=== PATIENT | male | born 1990 | race Caucasian/White ===

== ENCOUNTER → 2018-05-17 14:03 | Emergency (ER) | payer BC, MEDICAID, MEDICARE ==
[~2018-05-17 14:03] MED LIST: Mouth Piece, Nicotine* 1 EACH CARTRIDGE INH PRN; Nicotine Inhaler* 10 MG AMP INH PRN
[2018-05-17 15:01] LABS: ABS Basophils 0 10^3/ul (0-0.2); ABS Eosinophils 0.1 10^3/ul (0-0.6); ABS Lymphocytes 2.5 10^3/ul (1.0-4.8); ABS Monocytes 0.5 10^3/ul (0-0.8); ABS Neutrophils 6.4 10^3/ul (1.5-7.7); ABS Nucleated RBC 0 10^3/ul; Eosinophil % 0.7 % (0-6); Hematocrit 41 % (42-52); Hemoglobin 13.9 g/dl (14.0-18.0); Lymphocyte % 26.8 % (25-47); Mean Corpuscular HGB Conc 34 g/dl (31-36); Mean Corpuscular Hemoglobin 31 pg (27-31); Mean Corpuscular Volume 91 fL (80-94); Mean Platelet Volume 9.6 um3 (7.4-10.4); Nucleated Red Blood Cells % 0; Platelet Count 222 10^3/ul (150-450); Red Cell Distribution Width 14 % (10.5-15); White Blood Count 9.5 10^3/ul (3.5-10.8)
[2018-05-17 15:05] LABS: Urine Appearance Cloudy; Urine Blood Negative (Negative); Urine Color Amber; Urine Ketones Trace (Negative); Urine Protein 1+(30 mg/dL) (Negative); Urine Red Blood Cell Absent (Absent); Urine Specific Gravity 1.026 (1.010-1.030); Urine Urobilinogen Negative (Negative); Urine White Blood Cell Absent (Absent)
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
[2018-05-17 15:19] LABS: EGFR Non-African American 91.7 (>60)
[2018-05-17 19:45] VITALS: BP 145/73
== END | disposition home or self-care (01) ==
LOC: ED 14:03
DX: F39 Unspecified mood [affective] disorder (principal)
CPT/HCPCS: 36415; 80053; 80164; 80307; 80320; 80329; 81003; 81015; 84443; 85025; 99284; G0480

== ENCOUNTER 2019-06-02 12:32 | Inpatient (IN) | payer MEDICARE, MEDICAID ==
[2019-06-02 13:07] LABS: ABS Eosinophils 0.2 10^3/ul (0-0.6); ABS Lymphocytes 2.5 10^3/ul (1.0-4.8); ABS Monocytes 0.7 10^3/ul (0-0.8); ABS Neutrophils 4.3 10^3/ul (1.5-7.7); Eosinophil % 2.1 %; Hematocrit 43 % (42-52); Hemoglobin 15.4 g/dL (14.0-18.0); Lymphocyte % 32.1 %; Mean Corpuscular HGB Conc 36 g/dL (31-36); Mean Corpuscular Hemoglobin 33 pg (27-31); Mean Corpuscular Volume 91 fL (80-94); Mean Platelet Volume 8.8 fL (7.4-10.4); Nucleated Red Blood Cells % 0.1; Platelet Count 203 10^3/uL (150-450); Red Blood Count 4.74 10^6 /uL (4.18-5.48); Red Cell Distribution Width 13 % (10-15); White Blood Count 7.7 10^3/uL (3.5-10.8)
[2019-06-02 13:22] LABS: ALT 14 U/L (7-52); AST 15 U/L (13-39); Albumin 4.7 g/dL (3.2-5.2); Albumin/Globulin Ratio 1.6 (1-3); Alkaline Phosphatase 59 U/L (34-104); Anion Gap 9 mmol/L (2-11); BUN/Creatinine Ratio 18.8 (8-20); Blood Urea Nitrogen 15 mg/dL (6-24); CO2 Carbon Dioxide 24 mmol/L (22-32); Calcium 10.2 mg/dL (8.6-10.3); Chloride 105 mmol/L (101-111); EGFR African American 139.3 (>60); EGFR Non-African American 115.1 (>60); Globulin 2.9 g/dL (2-4); Glucose 93 mg/dL (70-100); Potassium 3.8 mmol/L (3.5-5.0); Sodium 138 mmol/L (135-145); Total Protein 7.6 g/dL (6.4-8.9)
[2019-06-02 13:43] LABS: Acetaminophen < 15 mcg/mL; Alcohol < 10 mg/dL (<10); Salicylate < 2.50 mg/dL (<30)
[2019-06-02 13:57] LABS: TSH (Thyroid Stimulating Horm) 2.86 mcIU/mL (0.34-5.60)
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
[2019-06-02] MEDS ORDERED: Nicotine* 2MG (FRUIT FLAVOR) GUM PO PRN (16:36)
[2019-06-02 18:17] LABS: Urine Benzodiazepine Screen None Detected (None Detect); Urine Opiates Screen None Detected (None Detect)
[2019-06-02 18:21] LABS: Urine Appearance Clear; Urine Color Yellow; Urine Specific Gravity 1.015 (1.010-1.030); Urine Urobilinogen Negative (Negative)
[2019-06-02 18:22] LABS: Urine Bilirubin Negative (Negative); Urine Blood Negative (Negative); Urine Glucose Negative (Negative); Urine Ketones 1+ (Negative); Urine Nitrite Negative (Negative); Urine Protein 1+(30 mg/dL) (Negative)
[2019-06-02 18:26] LABS: Urine Bacteria Absent (Absent); Urine Red Blood Cell Absent (Absent); Urine White Blood Cell Absent (Absent)
[2019-06-02] MEDS: Divalproex ER TAB(*) 500 MG PO SCH (20:50)
[2019-06-02] MEDS: Paliperidone ER TAB* 9 MG TAB.ER PO SCH (20:50)
[2019-06-02] MEDS: Trihexyphenidyl TAB* 2 MG PO SCH (20:51)
[2019-06-03] MEDS: Trihexyphenidyl TAB* 2 MG PO SCH ×2 (08:15→21:14)
[2019-06-03] MEDS: Vitamin THERAPEUTIC TAB PO SCH (08:16)
[2019-06-03] MEDS: Divalproex ER TAB(*) 500 MG PO SCH ×2 (08:16→21:14)
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
[2019-06-03] MEDS: Paliperidone ER TAB* 9 MG TAB.ER PO SCH (21:14)
[2019-06-04 08:36] LABS: HDL Cholesterol 36.8 mg/dL
[2019-06-04 09:55] LABS: HIV 4th Generation Nonreactive (Nonreactive)
[2019-06-04] MEDS: Divalproex ER TAB(*) 500 MG PO SCH ×2 (10:16→21:48)
[2019-06-04] MEDS: Trihexyphenidyl TAB* 2 MG PO SCH ×2 (10:16→21:48)
[2019-06-04] MEDS: Vitamin THERAPEUTIC TAB PO SCH (10:16)
[2019-06-04] MEDS: Nicotine PATCH 21 MG/24 HR* PATCH TRANSDERM SCH (11:33)
--- NOTE | 2019-06-04 16:36 | PN ---
Subjective - Subjective Date of Service: 06/04/19 Service Type: 51516 Hosp care 25 min moderate complexity Subjective: Patient lying down upon approach, pleasant to engage with. He joined film writer and SW to discuss treatment planning. He reports liking working at the [employer] [facility] [employer] and is eager to return to work. 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 He states he is not exercising as much and stopped going to the gym when he started smoking cigarettes. He reports drinking alcohol "a lot" as it gives him a buzz and relaxation. He also refers to giving him a break from mental anguish. He does not recall being aggressive at home or during recent hospitalization in [place] and seems genuinely surprised about collateral information. Patient states he remembers being depressed and "like my parents were gonna send me to [facility]." I inquire about Morgan and he states that he doesn't like the injections due to it "sitting in his muscle" and he worries about protein synthesis. [film writer recalls this delusion being consistent when treating him outpatient setting in approx 2014.] During conversation, patient tends to other stimuli and often asks that questions be repeated. Lottery Sales Clerk spoke with patient's psychiatrist, Dr Butler. Patient has had consistently poor adherence to treatment and insight into illness. He states that he received Invega injection last in November then refused to continue. Objective - General Observations Appearance: Unkempt Appears Stated Age: Yes Stature: Overweight Posture: Tense Eye Contact: Avoidant Behavior/Activity: Slowed - Interaction Observations Attitude Towards Examiner: Cooperative Stated Mood: Euthymic Affect: Incongruent Speech Pattern/Tone: Clear, Appropriate, Quiet Volume Thought Process: Disorganized Perception: WNL Thought Content: Grandiose Thought Process: Lethality: Paranoid Ideation Hallucination Type: Denies Delusion Type: Grandeur - Cognitive Function Orientation: A&O x 4 Level of Consciousness: Alert Cognition: Impaired Attention/Concentration Estimated Intelligence: Normal Insight: Difficulty Acknowledging Presence of Psyciatric Problems Judgment Within Normal Limits: No Ability to Make Reasonable Decisions: Serverely Impaired - Medication Compliance Cooperative with Inpatient Medication Regimen: Yes - Group Participation Participates in Group Activities: Partial Assessment - Assessment Merits Inpatient Hospitalization: For Immediate Safety, For Stabilization Inpatient DSM-V Dx: F25.0 Clinical Impression: 28yo wm with known history of schizoaffective d/o and poor compliance to outpatient treatment who was brought to the ED by parents due to disorganized and aggressive behavior at home. He merits hospitalization for immediate safety and stabilization. Plan - Plan Treatment Plan: Name: KAMALA MCKEON Birthdate: 1990 [id number] continue acute intensive psychiatric treatment. consider [facility] protocol per patient symptoms continue current medications, consider invega sustenna per patient consent Valproic acid trough level of 86.0 on 06/04/19 Continued Medication Management: Start Medication Medications: Current Medications Acetaminophen (Tylenol Tab*) 650 mg PO Q4H PRN PRN Reason: for pain; or Temp >101 F Al Hydrox/Mg Hydrox/Simethicone (Maalox Plus*) 30 ml PO Q4H PRN PRN Reason: INDIGESTION Divalproex Sodium (Depakote Er Tab(*)) 1,000 mg PO BID [facility] Last Admin: 06/04/19 10:16 Dose: 1,000 mg Multivitamins (Theragran Tab*) 1 tab PO DAILY [facility] Last Admin: 06/04/19 10:16 Dose: 1 tab Nicotine (Nicotine Patch 21 Mg/24 Hr*) 1 patch TRANSDERM DAILY [facility] Last Admin: 06/04/19 11:33 Dose: 1 patch Nicotine Polacrilex (Nicotine Gum*) 4 mg PO Q2H PRN PRN Reason: CRAVING Paliperidone (Invega Er Tab*) 9 mg PO BEDTIME [facility] Last Admin: 06/03/19 21:14 Dose: 9 mg Pharmacy Profile Note (Nicotine Patch Removal Note*) 1 note PATCH OFF 2099 [facility] Trihexyphenidyl HCl (Artane*) 2 mg PO BID [facility] Last Admin: 06/04/19 10:16 Dose: 2 mg - Discharge Plan Discharge Plan: Inpatient Hospitalization
[2019-06-04] MEDS: Nicotine* 4MG (FRUIT FLAVOR) GUM PO PRN (19:28)
[2019-06-04] MEDS: Nicotine Patch Removal NOTE PATCH OFF SCH (21:48)
[2019-06-04] MEDS: Paliperidone ER TAB* 9 MG TAB.ER PO SCH (21:48)
[2019-06-05] MEDS ORDERED: Paliperidone SUSTENNA* 156 MG/1 ML IM ONE (09:30)
[2019-06-05] MEDS ORDERED: LORazepam TAB(*) 1 MG PO SCH (11:00)
[2019-06-05] MEDS: Vitamin THERAPEUTIC TAB PO SCH (11:17)
[2019-06-05] MEDS: Trihexyphenidyl TAB* 2 MG PO SCH ×2 (11:20→21:29)
[2019-06-05] MEDS: Nicotine PATCH 21 MG/24 HR* PATCH TRANSDERM SCH (11:21)
[2019-06-05] MEDS: Divalproex ER TAB(*) 500 MG PO SCH ×2 (11:37→21:27)
--- NOTE | 2019-06-05 14:28 | PN ---
Subjective - Subjective Date of Service: 06/05/19 Service Type: 73942 Hosp care 25 min moderate complexity Subjective: Patient reports frustration that staff members are staring him down, talking about him and judging him and refers to them with derogatory comments. Magnetic Observer asked patient for clarification and he responded with intense stare and yelling "You think I'm fucking crazy!?!" Magnetic Observer changed topic and patient later said that his father often asks him for evidence regarding thought content. Patient notified of depakote level of 86.0 and recommendation to increase HS dose. He asks about invega sustenna and side effects. He states he feels it coagulate in his muscle, that it moves his soul and makes him sterile. Magnetic Observer discussed risks/benefits and patient states "I can make it move from my muscle to my brain then." Magnetic Observer notified charge nurse of above and that patient may be less reactive to female staff. Objective - General Observations Appearance: Disheveled, Unkempt Stature: Overweight Posture: Tense Eye Contact: Intense, Intermittent Behavior/Activity: Peculiar - Interaction Observations Attitude Towards Examiner: Cooperative, Hostile, Mistrustful Stated Mood: Irritable Affect: Restricted Speech Pattern/Tone: Clear, Appropriate Thought Process: Disorganized Perception: WNL Thought Content: Paranoid, Grandiose Thought Process: Lethality: Paranoid Ideation Hallucination Type: Denies Delusion Type: Persecution, Grandeur - Cognitive Function Orientation: A&O x 4 Level of Consciousness: Alert Cognition: Impaired Attention/Concentration Estimated Intelligence: Normal Insight: Difficulty Acknowledging Presence of Psyciatric Problems Judgment Within Normal Limits: No Ability to Make Reasonable Decisions: Serverely Impaired - Medication Compliance Cooperative with Inpatient Medication Regimen: Yes - Group Participation Participates in Group Activities: Partial Assessment - Assessment Merits Inpatient Hospitalization: For Immediate Safety, For Stabilization Inpatient DSM-V Dx: F25.0 Clinical Impression: 28yo wm with known history of schizoaffective d/o and poor compliance to outpatient treatment who was brought to the ED by parents due to disorganized and aggressive behavior at home. He merits hospitalization for immediate safety and stabilization. Plan - Plan Treatment Plan: Name: KAMALA MCKEON Birthdate: 1990 [id number] continue acute intensive psychiatric treatment. consider [facility] protocol per patient symptoms Valproic acid trough level of 86.0 on 06/04/19; increase dose to 1000mg in am and 1500mg qhs. give invega sustenna 156mg IM when available from pharmacy. continue other medications as ordered. Continued Medication Management: Start Medication Medications: Current Medications Acetaminophen (Tylenol Tab*) 650 mg PO Q4H PRN PRN Reason: for pain; or Temp >101 F Al Hydrox/Mg Hydrox/Simethicone (Maalox Plus*) 30 ml PO Q4H PRN PRN Reason: INDIGESTION Divalproex Sodium (Depakote Er Tab(*)) 1,500 mg PO BEDTIME [facility] Divalproex Sodium (Depakote Er Tab(*)) 1,000 mg PO DAILY [facility] Last Admin: 06/05/19 11:37 Dose: 1,000 mg Folic Acid (Folvite Tab*) 1 mg PO DAILY [facility] Lorazepam (Ativan Tab(*)) 0 - 6 mg PO .PER [facility] PROTOCOL [facility]; Protocol Multivitamins (Theragran Tab*) 1 tab PO DAILY [facility] Last Admin: 06/05/19 11:17 Dose: 1 tab Nicotine (Nicotine Patch 21 Mg/24 Hr*) 1 patch TRANSDERM DAILY [facility] Last Admin: 06/05/19 11:21 Dose: Not Given Nicotine Polacrilex (Nicotine Gum*) 4 mg PO Q2H PRN PRN Reason: CRAVING Last Admin: 06/04/19 19:28 Dose: 4 mg Paliperidone (Invega Er Tab*) 9 mg PO BEDTIME [facility] Last Admin: 06/04/19 21:48 Dose: 9 mg Pharmacy Profile Note (Nicotine Patch Removal Note*) 1 note PATCH OFF 2100 [facility] Last Admin: 06/04/19 21:48 Dose: 1 note Thiamine HCl (Vitamin B-1 Tab*) 100 mg PO DAILY [facility] Trihexyphenidyl HCl (Artane*) 2 mg PO BID [facility] Last Admin: 06/05/19 11:20 Dose: 2 mg - Discharge Plan Discharge Plan: Inpatient Hospitalization
[2019-06-05] MEDS: Nicotine* 4MG (FRUIT FLAVOR) GUM PO PRN (18:26)
[2019-06-05] MEDS: Paliperidone ER TAB* 9 MG TAB.ER PO SCH (21:28)
[2019-06-05] MEDS: Nicotine Patch Removal NOTE PATCH OFF SCH (21:29)
[2019-06-06] MEDS: Folic Acid TAB* 1 MG PO SCH (09:48)
[2019-06-06] MEDS: Thiamine TAB* 100 MG TAB PO SCH (09:49)
[2019-06-06] MEDS: Vitamin THERAPEUTIC TAB PO SCH (09:49)
[2019-06-06] MEDS: Divalproex ER TAB(*) 500 MG PO SCH ×2 (09:49→21:14)
[2019-06-06] MEDS: Trihexyphenidyl TAB* 2 MG PO SCH ×2 (09:50→21:13)
[2019-06-06] MEDS: Nicotine PATCH 21 MG/24 HR* PATCH TRANSDERM SCH (11:41)
--- NOTE | 2019-06-06 16:18 | PN ---
Subjective - Subjective Date of Service: 06/06/19 Service Type: 42241 Hosp care 35 min high complexity Subjective: Patient is primarily seclusive to his room and slept most of the day. Phone call with mother, Linda Ray and unit SW Dionne Kimble LMSW: Linda reports patient has been consistently taking medications, as she dispenses them directly to him. She states that he was drinking much alcohol in the days prior to episode leading to admission. She states that he was last in [facility] psychiatric unit in february. It was during this hospitalization that he received an Invega sustenna injection and afterwards he felt flu-like symptoms for 10 days. She also gives more history in that Kamala was in treatment at the [facility] for a year while being prescribed clozapine. She states that they made an exception for this medication. He has also been in [facility] for almost a year, including the [facility] program. She states that she and her have been housing him but that it is not sustainable due to his needs. She is receptive to having a family meeting and set a time for tomorrow afternoon. Objective - General Observations Appearance: Disheveled Stature: Overweight Posture: Slumped Eye Contact: Avoidant Behavior/Activity: Slowed - Interaction Observations Attitude Towards Examiner: Cooperative Stated Mood: Dysphoric Affect: Blunted Speech Pattern/Tone: Appropriate, Quiet Volume Thought Process: Disorganized Perception: WNL Thought Content: Paranoid, Phobic Thought Process: Lethality: Paranoid Ideation Hallucination Type: Denies Delusion Type: Persecution - Cognitive Function Orientation: A&O x 4 Level of Consciousness: Alert Cognition: Impaired Attention/Concentration Estimated Intelligence: Normal Insight: Difficulty Acknowledging Presence of Psyciatric Problems Judgment Within Normal Limits: No Ability to Make Reasonable Decisions: Serverely Impaired - Medication Compliance Cooperative with Inpatient Medication Regimen: Yes - Group Participation Participates in Group Activities: No Assessment - Assessment Merits Inpatient Hospitalization: For Immediate Safety, For Stabilization Inpatient DSM-V Dx: F25.0 Clinical Impression: 28yo wm with known history of schizoaffective d/o and poor compliance to outpatient treatment who was brought to the ED by parents due to disorganized and aggressive behavior at home. He merits hospitalization for immediate safety and stabilization. Plan - Plan Treatment Plan: Name: KAMALA RAY Birthdate: 1990 [id number] continue acute intensive psychiatric treatment. consider [facility] protocol per patient symptoms Valproic acid trough level of 86.0 on 06/04/19; continue depakote 1000mg in am and 1500mg qhs. may hold invega sustenna 156mg IM until after family meeting. continue other medications as ordered. family meeting on 06/07 at 1600 Continued Medication Management: Consider Medication Medications: Current Medications Acetaminophen (Tylenol Tab*) 650 mg PO Q4H PRN PRN Reason: for pain; or Temp >101 F Al Hydrox/Mg Hydrox/Simethicone (Maalox Plus*) 30 ml PO Q4H PRN PRN Reason: INDIGESTION Divalproex Sodium (Depakote Er Tab(*)) 1,500 mg PO BEDTIME [facility] Last Admin: 06/05/19 21:27 Dose: 1,500 mg Divalproex Sodium (Depakote Er Tab(*)) 1,000 mg PO DAILY [facility] Last Admin: 06/06/19 09:49 Dose: 1,000 mg Folic Acid (Folvite Tab*) 1 mg PO DAILY [facility] Last Admin: 06/06/19 09:48 Dose: 1 mg Lorazepam (Ativan Tab(*)) 0 - 6 mg PO .PER [facility] PROTOCOL FELIX; Protocol Multivitamins (Theragran Tab*) 1 tab PO DAILY [facility] Last Admin: 06/06/19 09:49 Dose: 1 tab Nicotine (Nicotine Patch 21 Mg/24 Hr*) 1 patch TRANSDERM DAILY [facility] Last Admin: 06/06/19 11:41 Dose: Not Given Nicotine Polacrilex (Nicotine Gum*) 4 mg PO Q2H PRN PRN Reason: CRAVING Last Admin: 06/05/19 18:26 Dose: 4 mg Paliperidone (Invega Er Tab*) 9 mg PO BEDTIME [facility] Last Admin: 06/05/19 21:28 Dose: 9 mg Pharmacy Profile Note (Nicotine Patch Removal Note*) 1 note PATCH OFF 2100 [facility] Last Admin: 06/05/19 21:29 Dose: Not Given Thiamine HCl (Vitamin B-1 Tab*) 100 mg PO DAILY [facility] Last Admin: 06/06/19 09:49 Dose: 100 mg Trihexyphenidyl HCl (Artane*) 2 mg PO BID [facility] Last Admin: 06/06/19 09:50 Dose: 2 mg - Discharge Plan Discharge Plan: Inpatient Hospitalization Outpatient Program: [facility]
[2019-06-06] MEDS: Nicotine* 4MG (FRUIT FLAVOR) GUM PO PRN (17:31)
[2019-06-06] MEDS: Paliperidone ER TAB* 9 MG TAB.ER PO SCH (21:13)
[2019-06-06] MEDS: Nicotine Patch Removal NOTE PATCH OFF SCH (21:15)
[2019-06-07] MEDS: Divalproex ER TAB(*) 500 MG PO SCH ×2 (10:58→19:34)
[2019-06-07] MEDS: Thiamine TAB* 100 MG TAB PO SCH (10:59)
[2019-06-07] MEDS: Trihexyphenidyl TAB* 2 MG PO SCH ×2 (10:59→19:41)
[2019-06-07] MEDS: Vitamin THERAPEUTIC TAB PO SCH (10:59)
[2019-06-07] MEDS: Folic Acid TAB* 1 MG PO SCH (10:59)
[2019-06-07] MEDS: Nicotine PATCH 21 MG/24 HR* PATCH TRANSDERM SCH (11:00)
--- NOTE | 2019-06-07 16:03 | PN ---
Subjective - Subjective Date of Service: 06/07/19 Service Type: [id number] Hosp care 35 min high complexity Subjective: Family meeting attended by short story writer, patient's parents Linda and Chan, and Dionne Kimble LMSW with Kamala joining partway through. Linda and Chan were updated regarding his presentation and treatment planning. They had questions regarding schizophrenia and schizoaffective disorder. They identified with Kamala showing episodic mood changes. Kamala joined and was alternately jovial, agitated and tearful but congruent to topic of conversation. He demonstrates impaired insight and does not believe he has mental illness. He is defensive in regards to delusional thought content and discussion regarding alcohol abuse. Please see SW note for further detail. Objective - General Observations Appearance: Disheveled Appears Stated Age: Yes Stature: Overweight Posture: Tense Eye Contact: Intense Behavior/Activity: Peculiar, Agitated - Interaction Observations Attitude Towards Examiner: Cooperative, Defensive, Mistrustful Stated Mood: Dysphoric, Irritable Affect: Labile Speech Pattern/Tone: Quiet Volume, Loud Volume Thought Process: Disorganized, Circumstantial, Impoverished Perception: WNL Thought Content: Paranoid, Self-Deprecatory, Grandiose Thought Process: Lethality: Paranoid Ideation Hallucination Type: Denies Delusion Type: Persecution, Grandeur - Cognitive Function Orientation: A&O x 4 Level of Consciousness: Alert Cognition: Impaired Attention/Concentration, Impaired Ability to Abstract Estimated Intelligence: Normal Insight: Difficulty Acknowledging Presence of Psyciatric Problems Judgment Within Normal Limits: No Ability to Make Reasonable Decisions: Serverely Impaired Assessment - Assessment Merits Inpatient Hospitalization: For Immediate Safety, For Stabilization Inpatient DSM-V Dx: F25.0 Clinical Impression: 28yo wm with known history of schizoaffective d/o and poor compliance to outpatient treatment who was brought to the ED by parents due to disorganized and aggressive behavior at home. He is acutely psychotic without insight. He merits hospitalization for immediate safety and stabilization. Plan - Plan Treatment Plan: Name: KAMALA MCKEON Birthdate: 1990 [id number] continue acute intensive psychiatric treatment. [facility] protocol. Valproic acid trough level of 86.0 on 06/04/19; continue depakote 1000mg in am and 1500mg qhs. may give invega sustenna 156mg IM. continue other medications as ordered. continue to explore realistic discharge planning Continued Medication Management: Start Medication Medications: Current Medications Acetaminophen (Tylenol Tab*) 650 mg PO Q4H PRN PRN Reason: for pain; or Temp >101 F Al Hydrox/Mg Hydrox/Simethicone (Maalox Plus*) 30 ml PO Q4H PRN PRN Reason: INDIGESTION Divalproex Sodium (Depakote Er Tab(*)) 1,500 mg PO BEDTIME [facility] Last Admin: 06/06/19 21:14 Dose: 1,500 mg Divalproex Sodium (Depakote Er Tab(*)) 1,000 mg PO DAILY [facility] Last Admin: 06/07/19 10:58 Dose: 1,000 mg Folic Acid (Folvite Tab*) 1 mg PO DAILY [facility] Last Admin: 06/07/19 10:59 Dose: 1 mg Lorazepam (Ativan Tab(*)) 0 - 6 mg PO .[address] [facility] PROTOCOL [facility]; Protocol Multivitamins (Theragran Tab*) 1 tab PO DAILY [facility] Last Admin: 06/07/19 10:59 Dose: 1 tab Nicotine (Nicotine Patch 21 Mg/24 Hr*) 1 patch TRANSDERM DAILY [facility] Last Admin: 06/07/19 11:00 Dose: 1 patch Nicotine Polacrilex (Nicotine Gum*) 4 mg PO Q2H PRN PRN Reason: CRAVING Last Admin: 06/06/19 17:31 Dose: 4 mg Paliperidone (Invega Er Tab*) 9 mg PO BEDTIME [facility] Last Admin: 06/06/19 21:13 Dose: 9 mg Pharmacy Profile Note (Nicotine Patch Removal Note*) 1 note PATCH OFF 2099 [facility] Last Admin: 06/06/19 21:15 Dose: Not Given Thiamine HCl (Vitamin B-1 Tab*) 100 mg PO DAILY [facility] Last Admin: 06/07/19 10:59 Dose: 100 mg Trihexyphenidyl HCl (Artane*) 2 mg PO BID [facility] Last Admin: 06/07/19 10:59 Dose: 2 mg - Discharge Plan Discharge Plan: Inpatient Hospitalization
[2019-06-07] MEDS: Nicotine* 4MG (FRUIT FLAVOR) GUM PO PRN (18:03)
[2019-06-07] MEDS: Paliperidone ER TAB* 9 MG TAB.ER PO SCH (19:34)
[2019-06-07] MEDS ORDERED: LORazepam TAB(*) 1 MG PO ONE (20:00)
[2019-06-07] MEDS ORDERED: Haloperidol TAB* 5 MG PO ONE (20:00)
[2019-06-07] MEDS: Nicotine Patch Removal NOTE PATCH OFF SCH (21:55)
[2019-06-08] MEDS ORDERED: Influenza VAC *QUAD* 2019-20* 0.5 ML SYRINGE IM ONE (09:00)
[2019-06-08] MEDS: Trihexyphenidyl TAB* 2 MG PO SCH ×2 (09:40→21:04)
[2019-06-08] MEDS: Vitamin THERAPEUTIC TAB PO SCH (09:40)
[2019-06-08] MEDS: Thiamine TAB* 100 MG TAB PO SCH (09:40)
[2019-06-08] MEDS: Folic Acid TAB* 1 MG PO SCH (09:40)
[2019-06-08] MEDS: Divalproex ER TAB(*) 500 MG PO SCH ×2 (09:41→21:02)
[2019-06-08] MEDS: Nicotine PATCH 21 MG/24 HR* PATCH TRANSDERM SCH (09:41)
[2019-06-08] MEDS: clonazePAM TAB(*) 1 MG PO SCH ×2 (12:10→21:02)
--- NOTE | 2019-06-08 13:05 | PN ---
Subjective - Subjective Date of Service: 06/08/19 Service Type: 34852 Hosp care 25 min moderate complexity Subjective: Patient was agitated last evening-- punching doors and stating that staff were "talking shit" about him. Today, patient accepted invega injection. He reports feeling tired today. Objective - General Observations Appearance: Disheveled, Unkempt Stature: Overweight Posture: Other (See Comment) - lying down Eye Contact: Average Behavior/Activity: Slowed - Interaction Observations Attitude Towards Examiner: Cooperative Stated Mood: Dysphoric Affect: Blunted Speech Pattern/Tone: Quiet Volume Thought Process: Disorganized, Impoverished Perception: WNL Thought Content: Paranoid, Grandiose Hallucination Type: Auditory Delusion Type: Persecution, Grandeur - Cognitive Function Orientation: A&O x 4 Level of Consciousness: Alert Cognition: Impaired Attention/Concentration, Impaired Ability to Abstract Estimated Intelligence: Normal Insight: Difficulty Acknowledging Presence of Psyciatric Problems Judgment Within Normal Limits: No Ability to Make Reasonable Decisions: Serverely Impaired - Medication Compliance Cooperative with Inpatient Medication Regimen: Yes - Group Participation Participates in Group Activities: No Assessment - Assessment Merits Inpatient Hospitalization: For Immediate Safety, For Stabilization Inpatient DSM-V Dx: F25.0 Clinical Impression: 28yo wm with known history of schizoaffective d/o and poor compliance to outpatient treatment who was brought to the ED by parents due to disorganized and aggressive behavior at home. He is acutely psychotic without insight. He merits hospitalization for immediate safety and stabilization. Plan - Plan Treatment Plan: Name: KAMALA MCKEON Birthdate: 1990 [id number] continue acute intensive psychiatric treatment. convert to 2PC legal status. may decrease to q30min and allow staff pass per RN discretion. [place] protocol. Valproic acid trough level of 86.0 on 06/04/19; continue depakote 1000mg in am and 1500mg qhs. given invega sustenna 156mg IM in R deltoid on 06/08/19; continue oral coverage. add clonazepam 1mg BID and haloperidol prn agitation. continue other medications as ordered. continue to explore realistic discharge planning. may need to consider state hospitalization. Continued Medication Management: Start Medication Medications: Current Medications Acetaminophen (Tylenol Tab*) 650 mg PO Q4H PRN PRN Reason: for pain; or Temp >101 F Al Hydrox/Mg Hydrox/Simethicone (Maalox Plus*) 30 ml PO Q4H PRN PRN Reason: INDIGESTION Clonazepam (Klonopin Tab(*)) 1 mg PO BID [facility] Last Admin: 06/08/19 12:10 Dose: 1 mg Divalproex Sodium (Depakote Er Tab(*)) 1,500 mg PO BEDTIME [facility] Last Admin: 06/07/19 19:34 Dose: 1,500 mg Divalproex Sodium (Depakote Er Tab(*)) 1,000 mg PO DAILY [facility] Last Admin: 06/08/19 09:41 Dose: 1,000 mg Folic Acid (Folvite Tab*) 1 mg PO DAILY [facility] Last Admin: 06/08/19 09:40 Dose: 1 mg Haloperidol (Haldol Tab*) 5 mg PO Q6H PRN PRN Reason: AGITATION Multivitamins (Theragran Tab*) 1 tab PO DAILY [facility] Last Admin: 06/08/19 09:40 Dose: 1 tab Nicotine (Nicotine Patch 21 Mg/24 Hr*) 1 patch TRANSDERM DAILY [facility] Last Admin: 06/08/19 09:41 Dose: Not Given Nicotine Polacrilex (Nicotine Gum*) 4 mg PO Q2H PRN PRN Reason: CRAVING Last Admin: 06/07/19 18:03 Dose: 4 mg Paliperidone (Invega Er Tab*) 9 mg PO BEDTIME [facility] Last Admin: 06/07/19 19:34 Dose: 9 mg Pharmacy Profile Note (Nicotine Patch Removal Note*) 1 note PATCH OFF 2100 [facility] Last Admin: 06/07/19 21:55 Dose: Not Given Thiamine HCl (Vitamin B-1 Tab*) 100 mg PO DAILY [facility] Last Admin: 06/08/19 09:40 Dose: 100 mg Trihexyphenidyl HCl (Artane*) 2 mg PO BID [facility] Last Admin: 06/08/19 09:40 Dose: 2 mg - Discharge Plan Discharge Plan: Consider Longer Term Tx Outpatient Program: [facility]
[2019-06-08] MEDS: Nicotine Patch Removal NOTE PATCH OFF SCH (21:03)
[2019-06-08] MEDS: Paliperidone ER TAB* 9 MG TAB.ER PO SCH (21:03)
[2019-06-08] MEDS: Nicotine* 4MG (FRUIT FLAVOR) GUM PO PRN (21:05)
[2019-06-09] MEDS: Thiamine TAB* 100 MG TAB PO SCH (08:31)
[2019-06-09] MEDS: Vitamin THERAPEUTIC TAB PO SCH (08:31)
[2019-06-09] MEDS: Nicotine PATCH 21 MG/24 HR* PATCH TRANSDERM SCH (08:31)
[2019-06-09] MEDS: Divalproex ER TAB(*) 500 MG PO SCH ×2 (08:31→20:49)
[2019-06-09] MEDS: clonazePAM TAB(*) 1 MG PO SCH ×2 (08:31→20:48)
[2019-06-09] MEDS: Folic Acid TAB* 1 MG PO SCH (08:31)
[2019-06-09] MEDS: Trihexyphenidyl TAB* 2 MG PO SCH ×2 (08:32→20:50)
[2019-06-09] MEDS: Nicotine* 4MG (FRUIT FLAVOR) GUM PO PRN ×2 (15:46→18:52)
[2019-06-09] MEDS: Paliperidone ER TAB* 9 MG TAB.ER PO SCH (20:50)
[2019-06-09] MEDS: Nicotine Patch Removal NOTE PATCH OFF SCH (21:28)
[2019-06-10] MEDS: Haloperidol TAB* 5 MG PO PRN (02:25)
[2019-06-10] MEDS: Thiamine TAB* 100 MG TAB PO SCH (11:45)
[2019-06-10] MEDS: Folic Acid TAB* 1 MG PO SCH (11:45)
[2019-06-10] MEDS: clonazePAM TAB(*) 1 MG PO SCH ×2 (11:45→20:42)
[2019-06-10] MEDS: Vitamin THERAPEUTIC TAB PO SCH (11:45)
[2019-06-10] MEDS: Trihexyphenidyl TAB* 2 MG PO SCH ×2 (11:46→20:45)
[2019-06-10] MEDS: Divalproex ER TAB(*) 500 MG PO SCH ×2 (11:46→20:42)
[2019-06-10] MEDS: Nicotine PATCH 21 MG/24 HR* PATCH TRANSDERM SCH (11:47)
[2019-06-10] MEDS: Nicotine* 4MG (FRUIT FLAVOR) GUM PO PRN (18:39)
[2019-06-10] MEDS: Paliperidone ER TAB* 9 MG TAB.ER PO SCH (20:45)
[2019-06-10] MEDS: Nicotine Patch Removal NOTE PATCH OFF SCH (20:46)
[2019-06-11] MEDS: Folic Acid TAB* 1 MG PO SCH (08:20)
[2019-06-11] MEDS: clonazePAM TAB(*) 1 MG PO SCH ×2 (08:20→20:36)
[2019-06-11] MEDS: Vitamin THERAPEUTIC TAB PO SCH (08:21)
[2019-06-11] MEDS: Thiamine TAB* 100 MG TAB PO SCH (08:21)
[2019-06-11] MEDS: Divalproex ER TAB(*) 500 MG PO SCH ×2 (08:21→20:36)
[2019-06-11] MEDS: Nicotine PATCH 21 MG/24 HR* PATCH TRANSDERM SCH (08:22)
[2019-06-11] MEDS: Trihexyphenidyl TAB* 2 MG PO SCH ×2 (08:22→20:37)
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
[2019-06-11] MEDS: Nicotine* 4MG (FRUIT FLAVOR) GUM PO PRN ×2 (15:18→18:40)
[2019-06-11] MEDS: Paliperidone ER TAB* 9 MG TAB.ER PO SCH (20:37)
[2019-06-11] MEDS: Nicotine Patch Removal NOTE PATCH OFF SCH (20:38)
[2019-06-12] MEDS: Nicotine PATCH 21 MG/24 HR* PATCH TRANSDERM SCH (10:09)
[2019-06-12] MEDS: Thiamine TAB* 100 MG TAB PO SCH (10:11)
[2019-06-12] MEDS: Vitamin THERAPEUTIC TAB PO SCH (10:11)
[2019-06-12] MEDS: Divalproex ER TAB(*) 500 MG PO SCH ×2 (10:12→20:43)
[2019-06-12] MEDS: clonazePAM TAB(*) 1 MG PO SCH ×2 (10:13→20:42)
[2019-06-12] MEDS: Folic Acid TAB* 1 MG PO SCH (10:13)
[2019-06-12] MEDS: Trihexyphenidyl TAB* 2 MG PO SCH ×2 (10:13→20:45)
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
[2019-06-12] MEDS: Acetaminophen TAB* 325 MG PO PRN (15:22)
[2019-06-12] MEDS: Nicotine* 4MG (FRUIT FLAVOR) GUM PO PRN (18:27)
[2019-06-12] MEDS: Paliperidone ER TAB* 9 MG TAB.ER PO SCH (20:44)
[2019-06-12] MEDS: Nicotine Patch Removal NOTE PATCH OFF SCH (20:46)
[2019-06-13] MEDS: Thiamine TAB* 100 MG TAB PO SCH (11:11)
[2019-06-13] MEDS: Vitamin THERAPEUTIC TAB PO SCH (11:11)
[2019-06-13] MEDS: clonazePAM TAB(*) 1 MG PO SCH ×2 (11:11→20:17)
[2019-06-13] MEDS: Folic Acid TAB* 1 MG PO SCH (11:11)
[2019-06-13] MEDS: Trihexyphenidyl TAB* 2 MG PO SCH ×2 (11:12→20:19)
[2019-06-13] MEDS: Nicotine PATCH 21 MG/24 HR* PATCH TRANSDERM SCH ×2 (11:12→12:29)
[2019-06-13] MEDS: Divalproex ER TAB(*) 500 MG PO SCH ×2 (11:44→20:20)
[2019-06-13] MEDS: Nicotine Patch Removal NOTE PATCH OFF SCH (15:34)
[2019-06-13] MEDS: Nicotine* 4MG (FRUIT FLAVOR) GUM PO PRN (18:58)
[2019-06-13] MEDS: Paliperidone ER TAB* 9 MG TAB.ER PO SCH (20:18)
[2019-06-13] MEDS: Acetaminophen TAB* 325 MG PO PRN (22:19)
[2019-06-14] MEDS: clonazePAM TAB(*) 1 MG PO SCH ×2 (10:06→20:35)
[2019-06-14] MEDS: Folic Acid TAB* 1 MG PO SCH (10:06)
[2019-06-14] MEDS: Vitamin THERAPEUTIC TAB PO SCH (10:06)
[2019-06-14] MEDS: Trihexyphenidyl TAB* 2 MG PO SCH ×2 (10:06→20:37)
[2019-06-14] MEDS: Thiamine TAB* 100 MG TAB PO SCH (10:06)
[2019-06-14] MEDS: Divalproex ER TAB(*) 500 MG PO SCH ×2 (10:07→20:36)
[2019-06-14] MEDS: Nicotine PATCH 21 MG/24 HR* PATCH TRANSDERM SCH (10:08)
[2019-06-14] MEDS: Nicotine* 4MG (FRUIT FLAVOR) GUM PO PRN (15:10)
[2019-06-14] MEDS: Paliperidone ER TAB* 9 MG TAB.ER PO SCH (20:37)
[2019-06-14] MEDS: Nicotine Patch Removal NOTE PATCH OFF SCH (20:38)
[2019-06-15] MEDS: Vitamin THERAPEUTIC TAB PO SCH (10:09)
[2019-06-15] MEDS: clonazePAM TAB(*) 1 MG PO SCH ×2 (10:09→20:36)
[2019-06-15] MEDS: Thiamine TAB* 100 MG TAB PO SCH (10:09)
[2019-06-15] MEDS: Trihexyphenidyl TAB* 2 MG PO SCH ×2 (10:09→20:36)
[2019-06-15] MEDS: Folic Acid TAB* 1 MG PO SCH (10:09)
[2019-06-15] MEDS: Nicotine PATCH 21 MG/24 HR* PATCH TRANSDERM SCH (10:10)
[2019-06-15] MEDS: Divalproex ER TAB(*) 500 MG PO SCH ×2 (11:12→20:36)
[2019-06-15] MEDS: Nicotine* 4MG (FRUIT FLAVOR) GUM PO PRN ×3 (12:42→20:14)
--- NOTE | 2019-06-15 14:09 | PN ---
Subjective - Subjective Date of Service: 06/15/19 Service Type: [id number] Hosp care 15 min low complexity Subjective: Patient reports he is feeling agitated at times. He is jovial and redirectable but endorses bizarre paranoid delusions. He continues to exhibit poor insight into mental illness. He states he is looking forward to the day he can use his mind to overpower medications. Client Care Consultant left with patient's mother with update. Objective - General Observations Appearance: Unkempt Stature: Overweight Posture: WNL Eye Contact: Intense Behavior/Activity: Slowed - Interaction Observations Attitude Towards Examiner: Cooperative Stated Mood: Anxious Affect: Full Speech Pattern/Tone: Clear, Appropriate, Normal Volume Thought Process: Disorganized, Loose Associations, Over Inclusive Perception: WNL Thought Content: Paranoid, Grandiose Thought Process: Lethality: Paranoid Ideation Hallucination Type: Denies Delusion Type: Persecution, Grandeur - Cognitive Function Orientation: A&O x 4 Level of Consciousness: Alert Cognition: Impaired Attention/Concentration Estimated Intelligence: Normal Insight: Difficulty Acknowledging Presence of Psyciatric Problems Judgment Within Normal Limits: No Ability to Make Reasonable Decisions: Serverely Impaired - Medication Compliance Cooperative with Inpatient Medication Regimen: Yes - Group Participation Participates in Group Activities: Partial Assessment - Assessment Merits Inpatient Hospitalization: For Immediate Safety, For Stabilization Inpatient DSM-V Dx: F25.0 Clinical Impression: 28yo wm with known history of schizoaffective d/o and poor compliance to outpatient treatment who was brought to the ED by parents due to disorganized and aggressive behavior at home. He is acutely psychotic without insight. He merits hospitalization for immediate safety and stabilization. Plan - Plan Treatment Plan: Name: KAMALA MCKEON Birthdate: 1990 [id number] continue acute intensive psychiatric treatment. convert to [facility]PC legal status. may decrease to q30min and allow staff pass per RN discretion. may have additional off unit pass per staffing. Valproic acid trough level of 50.0 on 06/13/19; continue depakote 1000mg in am and 1500mg qhs. given invega sustenna 156mg IM in R deltoid on 06/08/19; continue oral coverage. continue clonazepam 1mg BID and haloperidol prn agitation. continue other medications as ordered. continue to explore realistic discharge planning. may need to consider state hospitalization. Medications: Current Medications Acetaminophen (Tylenol Tab*) 650 mg PO Q4H PRN PRN Reason: for pain; or Temp >101 F Last Admin: 06/13/19 22:19 Dose: 650 mg Al Hydrox/Mg Hydrox/Simethicone (Maalox Plus*) 30 ml PO Q4H PRN PRN Reason: INDIGESTION Clonazepam (Klonopin Tab(*)) 1 mg PO BID [facility] Last Admin: 06/15/19 10:09 Dose: 1 mg Divalproex Sodium (Depakote Er Tab(*)) 1,500 mg PO BEDTIME [facility] Last Admin: 06/14/19 20:36 Dose: 1,500 mg Divalproex Sodium (Depakote Er Tab(*)) 1,000 mg PO DAILY [facility] Last Admin: 06/15/19 11:12 Dose: 1,000 mg Folic Acid (Folvite Tab*) 1 mg PO DAILY [facility] Last Admin: 06/15/19 10:09 Dose: 1 mg Haloperidol (Haldol Tab*) 5 mg PO Q6H PRN PRN Reason: AGITATION Last Admin: 06/10/19 02:25 Dose: 5 mg Multivitamins (Theragran Tab*) 1 tab PO DAILY [facility] Last Admin: 06/15/19 10:09 Dose: 1 tab Nicotine (Nicotine Patch 21 Mg/24 Hr*) 1 patch TRANSDERM DAILY [facility] Last Admin: 06/15/19 10:10 Dose: Not Given Nicotine Polacrilex (Nicotine Gum*) 4 mg PO Q2H PRN PRN Reason: CRAVING Last Admin: 06/15/19 12:42 Dose: 4 mg Paliperidone (Invega Er Tab*) 9 mg PO BEDTIME [facility] Last Admin: 06/14/19 20:37 Dose: 9 mg Pharmacy Profile Note (Nicotine Patch Removal Note*) 1 note PATCH OFF 2100 [facility] Last Admin: 06/14/19 20:38 Dose: Not Given Thiamine HCl (Vitamin B-1 Tab*) 100 mg PO DAILY [facility] Last Admin: 06/15/19 10:09 Dose: 100 mg Trihexyphenidyl HCl (Artane*) 2 mg PO BID [facility] Last Admin: 06/15/19 10:09 Dose: 2 mg - Discharge Plan Discharge Plan: Inpatient Hospitalization
[2019-06-15] MEDS: Haloperidol TAB* 5 MG PO PRN (17:27)
[2019-06-15] MEDS: Nicotine Patch Removal NOTE PATCH OFF SCH (20:15)
[2019-06-15] MEDS: Paliperidone ER TAB* 9 MG TAB.ER PO SCH (20:36)
[2019-06-16] MEDS: Trihexyphenidyl TAB* 2 MG PO SCH ×2 (09:18→19:56)
[2019-06-16] MEDS: Thiamine TAB* 100 MG TAB PO SCH (09:18)
[2019-06-16] MEDS: Folic Acid TAB* 1 MG PO SCH (09:18)
[2019-06-16] MEDS: clonazePAM TAB(*) 1 MG PO SCH ×2 (09:18→19:55)
[2019-06-16] MEDS: Nicotine PATCH 21 MG/24 HR* PATCH TRANSDERM SCH (09:19)
[2019-06-16] MEDS: Divalproex ER TAB(*) 500 MG PO SCH ×2 (09:19→19:54)
[2019-06-16] MEDS: Vitamin THERAPEUTIC TAB PO SCH (09:19)
[2019-06-16] MEDS: Nicotine* 4MG (FRUIT FLAVOR) GUM PO PRN ×3 (12:46→19:53)
[2019-06-16] MEDS: Acetaminophen TAB* 325 MG PO PRN (15:17)
[2019-06-16] MEDS: Paliperidone ER TAB* 9 MG TAB.ER PO SCH (19:55)
[2019-06-16] MEDS: Nicotine Patch Removal NOTE PATCH OFF SCH (20:17)
[2019-06-17] MEDS: Vitamin THERAPEUTIC TAB PO SCH (11:47)
[2019-06-17] MEDS: Divalproex ER TAB(*) 500 MG PO SCH ×2 (11:48→19:34)
[2019-06-17] MEDS: Thiamine TAB* 100 MG TAB PO SCH (11:48)
[2019-06-17] MEDS: Folic Acid TAB* 1 MG PO SCH (11:48)
[2019-06-17] MEDS: clonazePAM TAB(*) 1 MG PO SCH ×2 (12:11→19:34)
[2019-06-17] MEDS: Nicotine PATCH 21 MG/24 HR* PATCH TRANSDERM SCH (12:11)
[2019-06-17] MEDS: Trihexyphenidyl TAB* 2 MG PO SCH ×2 (12:12→19:35)
[2019-06-17] MEDS: Nicotine* 4MG (FRUIT FLAVOR) GUM PO PRN ×2 (15:23→18:53)
[2019-06-17] MEDS: Nicotine Patch Removal NOTE PATCH OFF SCH (19:35)
[2019-06-17] MEDS: Paliperidone ER TAB* 9 MG TAB.ER PO SCH (19:35)
[2019-06-18] MEDS: Divalproex ER TAB(*) 500 MG PO SCH ×2 (09:48→20:13)
[2019-06-18] MEDS: Trihexyphenidyl TAB* 2 MG PO SCH ×2 (09:48→20:15)
[2019-06-18] MEDS: Vitamin THERAPEUTIC TAB PO SCH (09:48)
[2019-06-18] MEDS: Thiamine TAB* 100 MG TAB PO SCH (09:48)
[2019-06-18] MEDS: Folic Acid TAB* 1 MG PO SCH (09:48)
[2019-06-18] MEDS: clonazePAM TAB(*) 1 MG PO SCH ×2 (09:48→20:14)
[2019-06-18] MEDS: Nicotine PATCH 21 MG/24 HR* PATCH TRANSDERM SCH (09:50)
--- NOTE | 2019-06-18 16:29 | PN ---
Subjective - Subjective Date of Service: 06/18/19 Service Type: [id number] Hosp care 15 min low complexity Assessment - Assessment Inpatient DSM-V Dx: F25.0 Clinical Impression: 28yo wm with known history of schizoaffective d/o and poor compliance to outpatient treatment who was brought to the ED by parents due to disorganized and aggressive behavior at home. He is acutely psychotic without insight. He merits hospitalization for immediate safety and stabilization. Plan - Plan Treatment Plan: Name: KAMALA MCKEON Birthdate: 1990 [id number] continue acute intensive psychiatric treatment. convert to [facility] legal status. may decrease to q30min and allow staff pass per RN discretion. may have additional off unit pass per staffing. Valproic acid trough level of 50.0 on 06/13/19; continue depakote 1000mg in am and 1500mg qhs. given invega sustenna 156mg IM in R deltoid on 06/08/19; continue oral coverage. continue clonazepam 1mg BID and haloperidol prn agitation. continue other medications as ordered. continue to explore realistic discharge planning. may need to consider state hospitalization. Medications: Current Medications Acetaminophen (Tylenol Tab*) 650 mg PO Q4H PRN PRN Reason: for pain; or Temp >101 F Last Admin: 06/16/19 15:17 Dose: 650 mg Al Hydrox/Mg Hydrox/Simethicone (Maalox Plus*) 30 ml PO Q4H PRN PRN Reason: INDIGESTION Clonazepam (Klonopin Tab(*)) 1 mg PO BID [facility] Last Admin: 06/18/19 09:48 Dose: 1 mg Divalproex Sodium (Depakote Er Tab(*)) 1,500 mg PO BEDTIME [facility] Last Admin: 06/17/19 19:34 Dose: 1,500 mg Divalproex Sodium (Depakote Er Tab(*)) 1,000 mg PO DAILY [facility] Last Admin: 06/18/19 09:48 Dose: 1,000 mg Folic Acid (Folvite Tab*) 1 mg PO DAILY [facility] Last Admin: 06/18/19 09:48 Dose: 1 mg Haloperidol (Haldol Tab*) 5 mg PO Q6H PRN PRN Reason: AGITATION Last Admin: 06/15/19 17:27 Dose: 5 mg Multivitamins (Theragran Tab*) 1 tab PO DAILY [facility] Last Admin: 06/18/19 09:48 Dose: 1 tab Nicotine (Nicotine Patch 21 Mg/24 Hr*) 1 patch TRANSDERM DAILY [facility] Last Admin: 06/18/19 09:50 Dose: Not Given Nicotine Polacrilex (Nicotine Gum*) 4 mg PO Q2H PRN PRN Reason: CRAVING Last Admin: 06/17/19 18:53 Dose: 4 mg Paliperidone (Invega Er Tab*) 9 mg PO BEDTIME [facility] Last Admin: 06/17/19 19:35 Dose: 9 mg Pharmacy Profile Note (Nicotine Patch Removal Note*) 1 note PATCH OFF 2100 [facility] Last Admin: 06/17/19 19:35 Dose: Not Given Thiamine HCl (Vitamin B-1 Tab*) 100 mg PO DAILY [facility] Last Admin: 06/18/19 09:48 Dose: 100 mg Trihexyphenidyl HCl (Artane*) 2 mg PO BID [facility] Last Admin: 06/18/19 09:48 Dose: 2 mg
[2019-06-18] MEDS: Nicotine* 4MG (FRUIT FLAVOR) GUM PO PRN (17:22)
[2019-06-18] MEDS: Paliperidone ER TAB* 9 MG TAB.ER PO SCH (20:15)
[2019-06-18] MEDS: Nicotine Patch Removal NOTE PATCH OFF SCH (20:17)
[2019-06-19] MEDS: Trihexyphenidyl TAB* 2 MG PO SCH (08:10)
[2019-06-19] MEDS: Thiamine TAB* 100 MG TAB PO SCH (08:10)
[2019-06-19] MEDS: Folic Acid TAB* 1 MG PO SCH (08:10)
[2019-06-19] MEDS: Vitamin THERAPEUTIC TAB PO SCH (08:10)
[2019-06-19] MEDS: clonazePAM TAB(*) 1 MG PO SCH ×2 (08:10→20:15)
[2019-06-19] MEDS: Divalproex ER TAB(*) 500 MG PO SCH ×2 (08:10→20:15)
[2019-06-19] MEDS: Nicotine PATCH 21 MG/24 HR* PATCH TRANSDERM SCH (08:11)
[2019-06-19] MEDS: Nicotine* 4MG (FRUIT FLAVOR) GUM PO PRN ×3 (09:26→18:53)
--- NOTE | 2019-06-19 15:49 | PN ---
Subjective - Subjective Date of Service: 06/18/19 Service Type: [id number] Hosp care 25 min moderate complexity Subjective: Patient is easily agitated by peers, especially male peers. He reports that others are talking about him and making fun of the tremor in his left hand. Patient's health care facilities inspector and unit SW are in contact in regards to discharge planning. Manager Internet spoke with patient's mother, Lidna, and given update. She was notified that [facility] may need to be considered. Objective - General Observations Appearance: Disheveled Stature: Overweight Posture: WNL Eye Contact: Average, Intense Behavior/Activity: Impulsive, Agitated - Interaction Observations Attitude Towards Examiner: Cooperative Stated Mood: Irritable Affect: Full Speech Pattern/Tone: Clear, Appropriate, Normal Volume Thought Process: Disorganized, Circumstantial Perception: WNL Thought Content: Paranoid, Grandiose Thought Process: Lethality: Paranoid Ideation Hallucination Type: Auditory Delusion Type: Denies - Cognitive Function Orientation: A&O x 4 Level of Consciousness: Alert Cognition: Impaired Attention/Concentration Estimated Intelligence: Normal Insight: Difficulty Acknowledging Presence of Psyciatric Problems Judgment Within Normal Limits: No Ability to Make Reasonable Decisions: Serverely Impaired - Medication Compliance Cooperative with Inpatient Medication Regimen: Yes - Group Participation Participates in Group Activities: Partial Assessment - Assessment Merits Inpatient Hospitalization: For Immediate Safety, For Stabilization, Pending Safe DC Plan Inpatient DSM-V Dx: F25.0 Clinical Impression: 28yo wm with known history of schizoaffective d/o and poor compliance to outpatient treatment who was brought to the ED by parents due to disorganized and aggressive behavior at home. He is acutely psychotic without insight. He merits hospitalization for immediate safety and stabilization. Plan - Plan Treatment Plan: Name: KAMAAL MCKEON Birthdate: 1990 [id number] continue acute intensive psychiatric treatment. convert to 2PC legal status. may decrease to q30min and allow staff pass per RN discretion. may have additional off unit pass per staffing. Valproic acid trough level of 50.0 on 06/13/19; continue depakote 1000mg in am and 1500mg qhs. given invega sustenna 156mg IM in R deltoid on 06/08/19; continue oral coverage. continue clonazepam 1mg BID and haloperidol prn agitation. DC artane to assess for necessity. continue other medications as ordered. continue to explore realistic discharge planning. may need to consider state hospitalization. Continued Medication Management: Consider Medication Medications: Current Medications Acetaminophen (Tylenol Tab*) 650 mg PO Q4H PRN PRN Reason: for pain; or Temp >101 F Last Admin: 06/16/19 15:17 Dose: 650 mg Al Hydrox/Mg Hydrox/Simethicone (Maalox Plus*) 30 ml PO Q4H PRN PRN Reason: INDIGESTION Clonazepam (Klonopin Tab(*)) 1 mg PO BID [facility] Last Admin: 06/19/19 08:10 Dose: 1 mg Divalproex Sodium (Depakote Er Tab(*)) 1,500 mg PO BEDTIME [facility] Last Admin: 06/18/19 20:13 Dose: 1,500 mg Divalproex Sodium (Depakote Er Tab(*)) 1,000 mg PO DAILY [facility] Last Admin: 06/19/19 08:10 Dose: 1,000 mg Folic Acid (Folvite Tab*) 1 mg PO DAILY [facility] Last Admin: 06/19/19 08:10 Dose: 1 mg Haloperidol (Haldol Tab*) 5 mg PO Q6H PRN PRN Reason: AGITATION Last Admin: 06/15/19 17:27 Dose: 5 mg Multivitamins (Theragran Tab*) 1 tab PO DAILY [facility] Last Admin: 06/19/19 08:10 Dose: 1 tab Nicotine (Nicotine Patch 21 Mg/24 Hr*) 1 patch TRANSDERM DAILY [facility] Last Admin: 06/19/19 08:11 Dose: Not Given Nicotine Polacrilex (Nicotine Gum*) 4 mg PO Q2H PRN PRN Reason: CRAVING Last Admin: 06/19/19 14:07 Dose: 4 mg Paliperidone (Invega Er Tab*) 9 mg PO BEDTIME [facility] Last Admin: 06/18/19 20:15 Dose: 9 mg Pharmacy Profile Note (Nicotine Patch Removal Note*) 1 note PATCH OFF 2100 [facility] Last Admin: 06/18/19 20:17 Dose: Not Given Thiamine HCl (Vitamin B-1 Tab*) 100 mg PO DAILY [facility] Last Admin: 06/19/19 08:10 Dose: 100 mg - Discharge Plan Discharge Plan: Inpatient Hospitalization Outpatient Program: [facility]
[2019-06-19] MEDS: Paliperidone ER TAB* 9 MG TAB.ER PO SCH (20:15)
[2019-06-19] MEDS: Nicotine Patch Removal NOTE PATCH OFF SCH (20:18)
[2019-06-20] MEDS: Folic Acid TAB* 1 MG PO SCH (08:58)
[2019-06-20] MEDS: Divalproex ER TAB(*) 500 MG PO SCH ×2 (08:58→20:18)
[2019-06-20] MEDS: Vitamin THERAPEUTIC TAB PO SCH (08:58)
[2019-06-20] MEDS: Thiamine TAB* 100 MG TAB PO SCH (08:58)
[2019-06-20] MEDS: Nicotine PATCH 21 MG/24 HR* PATCH TRANSDERM SCH (08:59)
[2019-06-20] MEDS: clonazePAM TAB(*) 1 MG PO SCH ×2 (09:00→20:17)
[2019-06-20] MEDS: Al Hydrox/Mg Hydrox/Simet LIQ* 30 ML UDC PO PRN (13:53)
[2019-06-20] MEDS: Nicotine* 4MG (FRUIT FLAVOR) GUM PO PRN (14:38)
--- NOTE | 2019-06-20 16:06 | PN ---
BSU: Group Therapy Note - Service Type Service Type: [id number] Group Psychotherapy - Medication Education Group: Patient was attentive and participatory in group, and remained in good behavioral control. He asked questions that were not particularly on topic.
[2019-06-20] MEDS: Nicotine Patch Removal NOTE PATCH OFF SCH (20:18)
[2019-06-20] MEDS: Paliperidone ER TAB* 9 MG TAB.ER PO SCH (20:18)
[2019-06-21] MEDS: Nicotine PATCH 21 MG/24 HR* PATCH TRANSDERM SCH (08:59)
[2019-06-21] MEDS: Divalproex ER TAB(*) 500 MG PO SCH ×2 (09:00→20:03)
[2019-06-21] MEDS: Thiamine TAB* 100 MG TAB PO SCH (09:01)
[2019-06-21] MEDS: clonazePAM TAB(*) 1 MG PO SCH ×2 (09:01→20:02)
[2019-06-21] MEDS: Folic Acid TAB* 1 MG PO SCH (09:02)
[2019-06-21] MEDS: Vitamin THERAPEUTIC TAB PO SCH (09:02)
[2019-06-21] MEDS: Nicotine* 4MG (FRUIT FLAVOR) GUM PO PRN ×3 (09:14→18:58)
[2019-06-21] MEDS: Haloperidol TAB* 5 MG PO PRN (16:08)
[2019-06-21] MEDS ORDERED: LORazepam TAB(*) 1 MG ONE (16:09)
--- NOTE | 2019-06-21 16:30 | PN ---
Subjective - Subjective Date of Service: 06/21/19 Service Type: [id number] Hosp care 35 min high complexity Subjective: During conversation with patient in the morning, he reports "I think the Invega is working. I'm making it go to my brain and I can feel the protein synthesis. " He states that Geodon also worked in the past in that "it cooled down my muscles." Patient participated in hour long meeting with parents, SW and career coordinator from [facility]. We discussed that patient has failed at independent living and with parents due to impaired insight into diagnoses leading to poor outpatient adherence, alcohol abuse and decompensation. We discussed discharge planning options, including consideration for referral to [facility]. During the meeting, patient expressed multiple times "I'm not insane!" and that he does not need psychiatric medications. He lacks ability to make informed medical decisions. Upon returning to unit after family meeting, patient was agitated and verbally aggressive with racial slurs to staff and select peer. He endorses thought insertion and paranoid ideation. He reported understanding that illness is creating the above; however, as the conversation continued he asserted that staff was targeting him and making plans to have people killed. He accepted oral prn medications. Objective - General Observations Appearance: Well Groomed Stature: Overweight Posture: WNL Eye Contact: Average Behavior/Activity: Slowed, Agitated - Interaction Observations Attitude Towards Examiner: Cooperative, Defensive, Mistrustful Attitude Towards Parent/Guardian: Positive Interaction Stated Mood: Expansive, Irritable, Angry Affect: Labile Speech Pattern/Tone: Pressured, Loud Volume Thought Process: Disorganized, Circumstantial, Impoverished Perception: WNL Thought Content: Paranoid, Grandiose Thought Process: Lethality: Paranoid Ideation Hallucination Type: Auditory Delusion Type: Thought Insertion, Persecution, Grandeur - Cognitive Function Orientation: A&O x 4 Level of Consciousness: Alert Cognition: Impaired Attention/Concentration Estimated Intelligence: Normal Insight: Difficulty Acknowledging Presence of Psyciatric Problems Judgment Within Normal Limits: No Ability to Make Reasonable Decisions: Serverely Impaired - Medication Compliance Cooperative with Inpatient Medication Regimen: Yes - Group Participation Participates in Group Activities: Partial Assessment - Assessment Merits Inpatient Hospitalization: For Immediate Safety, For Stabilization, For Discharge Planning, Pending Safe DC Plan Inpatient DSM-V Dx: F25.0 Clinical Impression: 28yo wm with known history of schizoaffective d/o and poor compliance to outpatient treatment who was brought to the ED by parents due to disorganized and aggressive behavior at home. He is acutely psychotic without insight. He merits hospitalization for immediate safety and stabilization. Plan - Plan Treatment Plan: Name: KAMALA MCKEON Birthdate: 1990 [id number] continue acute intensive psychiatric treatment. convert to 2PC legal status. may decrease to q30min and allow staff pass per RN discretion. may have additional off unit pass per staffing. Valproic acid trough level of 50.0 on 06/13/19; continue depakote 1000mg in am and 1500mg qhs. given invega sustenna 156mg IM in R deltoid on 06/08/19; continue oral coverage. continue clonazepam 1mg BID and haloperidol prn agitation. add lorazepam prn for anxiety DC'd artane to assess for necessity. continue other medications as ordered. continue to explore realistic discharge planning. may need to consider state hospitalization. Continued Medication Management: Consider Medication Medications: Current Medications Acetaminophen (Tylenol Tab*) 650 mg PO Q4H PRN PRN Reason: for pain; or Temp >101 F Last Admin: 06/16/19 15:17 Dose: 650 mg Al Hydrox/Mg Hydrox/Simethicone (Maalox Plus*) 30 ml PO Q4H PRN PRN Reason: INDIGESTION Last Admin: 06/20/19 13:53 Dose: 30 ml Clonazepam (Klonopin Tab(*)) 1 mg PO BID [facility] Last Admin: 06/21/19 09:01 Dose: 1 mg Divalproex Sodium (Depakote Er Tab(*)) 1,500 mg PO BEDTIME [facility] Last Admin: 06/20/19 20:18 Dose: 1,500 mg Divalproex Sodium (Depakote Er Tab(*)) 1,000 mg PO DAILY [facility] Last Admin: 06/21/19 09:00 Dose: 1,000 mg Folic Acid (Folvite Tab*) 1 mg PO DAILY [facility] Last Admin: 06/21/19 09:02 Dose: 1 mg Haloperidol (Haldol Tab*) 5 mg PO Q6H PRN PRN Reason: AGITATION Last Admin: 06/21/19 16:08 Dose: 5 mg Lorazepam (Ativan Tab(*)) 2 mg PO Q6H PRN PRN Reason: Anxiety/agitation Multivitamins (Theragran Tab*) 1 tab PO DAILY [facility] Last Admin: 06/21/19 09:02 Dose: 1 tab Nicotine (Nicotine Patch 21 Mg/24 Hr*) 1 patch TRANSDERM DAILY [facility] Last Admin: 06/21/19 08:59 Dose: 1 patch Nicotine Polacrilex (Nicotine Gum*) 4 mg PO Q2H PRN PRN Reason: CRAVING Last Admin: 06/21/19 13:21 Dose: 4 mg Paliperidone (Invega Er Tab*) 9 mg PO BEDTIME [facility] Last Admin: 06/20/19 20:18 Dose: 9 mg Pharmacy Profile Note (Nicotine Patch Removal Note*) 1 note PATCH OFF 2099 [facility] Last Admin: 06/20/19 20:18 Dose: Not Given Thiamine HCl (Vitamin B-1 Tab*) 100 mg PO DAILY [facility] Last Admin: 06/21/19 09:01 Dose: 100 mg - Discharge Plan Discharge Plan: Consider Longer Term Tx
[2019-06-21] MEDS: LORazepam TAB(*) 1 MG PO PRN (17:22)
[2019-06-21] MEDS: Acetaminophen TAB* 325 MG PO PRN (18:03)
[2019-06-21] MEDS: Paliperidone ER TAB* 9 MG TAB.ER PO SCH (20:01)
[2019-06-22] MEDS: Nicotine Patch Removal NOTE PATCH OFF SCH ×2 (01:56→21:00)
[2019-06-22] MEDS: clonazePAM TAB(*) 1 MG PO SCH ×2 (10:49→20:27)
[2019-06-22] MEDS: Divalproex ER TAB(*) 500 MG PO SCH ×2 (10:49→20:28)
[2019-06-22] MEDS: Folic Acid TAB* 1 MG PO SCH (10:49)
[2019-06-22] MEDS: Thiamine TAB* 100 MG TAB PO SCH (10:49)
[2019-06-22] MEDS: Vitamin THERAPEUTIC TAB PO SCH (10:49)
[2019-06-22] MEDS: Nicotine PATCH 21 MG/24 HR* PATCH TRANSDERM SCH (10:51)
--- NOTE | 2019-06-22 11:42 | PN ---
Subjective - Subjective Date of Service: 06/22/19 Service Type: [id number] Hosp care 15 min low complexity Subjective: Patient reports feeling better than yesterday and that he slept well. He reports hearing a male psychiatric nursing assistant "talking shit about me." Legal Service Specialist reiterated that the illness is likely creating psychotic symptoms and patient is encouraged to utilize prn medications when feeling agitated. Objective - General Observations Appearance: Disheveled Stature: Overweight Posture: WNL Eye Contact: Average Behavior/Activity: Agitated - Interaction Observations Attitude Towards Examiner: Cooperative, Mistrustful Stated Mood: Irritable Affect: Restricted Speech Pattern/Tone: Clear, Quiet Volume Thought Process: Disorganized, Circumstantial, Impoverished Perception: WNL Thought Content: Paranoid Thought Process: Lethality: Paranoid Ideation Hallucination Type: Auditory Delusion Type: Thought Insertion, Persecution - Cognitive Function Orientation: A&O x 4 Level of Consciousness: Alert Cognition: Impaired Attention/Concentration Estimated Intelligence: Normal Insight: Difficulty Acknowledging Presence of Psyciatric Problems Judgment Within Normal Limits: No Ability to Make Reasonable Decisions: Serverely Impaired - Medication Compliance Cooperative with Inpatient Medication Regimen: Yes - Group Participation Participates in Group Activities: Partial Assessment - Assessment Merits Inpatient Hospitalization: For Immediate Safety, For Stabilization Inpatient DSM-V Dx: F25.0 Clinical Impression: 28yo wm with known history of schizoaffective d/o and poor compliance to outpatient treatment who was brought to the ED by parents due to disorganized and aggressive behavior at home. He is acutely psychotic without insight. He merits hospitalization for immediate safety and stabilization. Plan - Plan Treatment Plan: Name: KAMALA MCKEON Birthdate: 1990 [id number] continue acute intensive psychiatric treatment. convert to 2PC legal status. may decrease to q30min and allow staff pass per RN discretion. may have additional off unit pass per staffing. Valproic acid trough level of 50.0 on 06/13/19; continue depakote 1000mg in am and 1500mg qhs. given invega sustenna 156mg IM in R deltoid on 06/08/19; continue oral coverage. continue clonazepam 1mg BID and haloperidol prn agitation. add lorazepam prn for anxiety DC'd artane to assess for necessity. continue other medications as ordered. continue to explore realistic discharge planning. may need to consider state hospitalization. Continued Medication Management: Consider Medication Medications: Current Medications Acetaminophen (Tylenol Tab*) 650 mg PO Q4H PRN PRN Reason: for pain; or Temp >101 F Last Admin: 06/21/19 18:03 Dose: 650 mg Al Hydrox/Mg Hydrox/Simethicone (Maalox Plus*) 30 ml PO Q4H PRN PRN Reason: INDIGESTION Last Admin: 06/20/19 13:53 Dose: 30 ml Clonazepam (Klonopin Tab(*)) 1 mg PO BID [facility] Last Admin: 06/22/19 10:49 Dose: 1 mg Divalproex Sodium (Depakote Er Tab(*)) 1,500 mg PO BEDTIME [facility] Last Admin: 06/21/19 20:03 Dose: 1,500 mg Divalproex Sodium (Depakote Er Tab(*)) 1,000 mg PO DAILY [facility] Last Admin: 06/22/19 10:49 Dose: 1,000 mg Folic Acid (Folvite Tab*) 1 mg PO DAILY [facility] Last Admin: 06/22/19 10:49 Dose: 1 mg Haloperidol (Haldol Tab*) 5 mg PO Q6H PRN PRN Reason: AGITATION Last Admin: 06/21/19 16:08 Dose: 5 mg Lorazepam (Ativan Tab(*)) 2 mg PO Q6H PRN PRN Reason: Anxiety/agitation Last Admin: 06/21/19 17:22 Dose: 2 mg Multivitamins (Theragran Tab*) 1 tab PO DAILY [facility] Last Admin: 06/22/19 10:49 Dose: 1 tab Nicotine (Nicotine Patch 21 Mg/24 Hr*) 1 patch TRANSDERM DAILY [facility] Last Admin: 06/22/19 10:51 Dose: Not Given Nicotine Polacrilex (Nicotine Gum*) 4 mg PO Q2H PRN PRN Reason: CRAVING Last Admin: 06/21/19 18:58 Dose: 4 mg Paliperidone (Invega Er Tab*) 9 mg PO BEDTIME [facility] Last Admin: 06/21/19 20:01 Dose: 9 mg Pharmacy Profile Note (Nicotine Patch Removal Note*) 1 note PATCH OFF 2100 [facility] Last Admin: 06/22/19 01:56 Dose: 1 note Thiamine HCl (Vitamin B-1 Tab*) 100 mg PO DAILY [facility] Last Admin: 06/22/19 10:49 Dose: 100 mg - Discharge Plan Discharge Plan: Consider Longer Term Tx Outpatient Program: [facility]
[2019-06-22] MEDS: Nicotine* 4MG (FRUIT FLAVOR) GUM PO PRN ×2 (12:33→18:03)
[2019-06-22] MEDS ORDERED: Ondansetron ODT TAB* 4 MG ONE ×2 (13:16→13:24)
[2019-06-22] MEDS ORDERED: Ondansetron ODT TAB* 4 MG PO ONE (14:00)
[2019-06-22] MEDS: Haloperidol TAB* 5 MG PO PRN (17:12)
[2019-06-22] MEDS: LORazepam TAB(*) 1 MG PO PRN (17:12)
[2019-06-22] MEDS: Paliperidone ER TAB* 9 MG TAB.ER PO SCH (20:27)
[2019-06-23] MEDS: clonazePAM TAB(*) 1 MG PO SCH ×2 (10:08→20:50)
[2019-06-23] MEDS: Folic Acid TAB* 1 MG PO SCH (10:10)
[2019-06-23] MEDS: Nicotine PATCH 21 MG/24 HR* PATCH TRANSDERM SCH (10:10)
[2019-06-23] MEDS: Divalproex ER TAB(*) 500 MG PO SCH ×2 (10:10→20:49)
[2019-06-23] MEDS: Vitamin THERAPEUTIC TAB PO SCH (10:11)
[2019-06-23] MEDS: Thiamine TAB* 100 MG TAB PO SCH (10:11)
[2019-06-23] MEDS: Nicotine* 4MG (FRUIT FLAVOR) GUM PO PRN ×2 (10:30→13:31)
[2019-06-23] MEDS: Haloperidol TAB* 5 MG PO PRN (14:58)
[2019-06-23] MEDS: LORazepam TAB(*) 1 MG PO PRN (14:58)
[2019-06-23] MEDS: Al Hydrox/Mg Hydrox/Simet LIQ* 30 ML UDC PO PRN (16:59)
[2019-06-23] MEDS: Nicotine Patch Removal NOTE PATCH OFF SCH (20:49)
[2019-06-23] MEDS: Paliperidone ER TAB* 9 MG TAB.ER PO SCH (20:50)
[2019-06-24] MEDS: Nicotine PATCH 21 MG/24 HR* PATCH TRANSDERM SCH (07:48)
[2019-06-24] MEDS: Vitamin THERAPEUTIC TAB PO SCH (07:48)
[2019-06-24] MEDS: Divalproex ER TAB(*) 500 MG PO SCH ×2 (07:48→20:42)
[2019-06-24] MEDS: Thiamine TAB* 100 MG TAB PO SCH (07:48)
[2019-06-24] MEDS: clonazePAM TAB(*) 1 MG PO SCH ×2 (07:48→20:42)
[2019-06-24] MEDS: Folic Acid TAB* 1 MG PO SCH (07:48)
[2019-06-24] MEDS: Nicotine* 4MG (FRUIT FLAVOR) GUM PO PRN ×3 (08:18→17:14)
[2019-06-24] MEDS: LORazepam TAB(*) 1 MG PO PRN (19:03)
[2019-06-24] MEDS: Haloperidol TAB* 5 MG PO PRN (19:03)
[2019-06-24] MEDS: Nicotine Patch Removal NOTE PATCH OFF SCH (20:43)
[2019-06-24] MEDS: Paliperidone ER TAB* 9 MG TAB.ER PO SCH (20:44)
[2019-06-25] MEDS: Vitamin THERAPEUTIC TAB PO SCH (08:21)
[2019-06-25] MEDS: Thiamine TAB* 100 MG TAB PO SCH (08:21)
[2019-06-25] MEDS: clonazePAM TAB(*) 1 MG PO SCH ×2 (08:21→19:59)
[2019-06-25] MEDS: Divalproex ER TAB(*) 500 MG PO SCH ×2 (08:21→20:00)
[2019-06-25] MEDS: Folic Acid TAB* 1 MG PO SCH (08:21)
[2019-06-25] MEDS: Nicotine PATCH 21 MG/24 HR* PATCH TRANSDERM SCH (08:23)
[2019-06-25] MEDS: Haloperidol TAB* 5 MG PO PRN (11:03)
[2019-06-25] MEDS: LORazepam TAB(*) 1 MG PO PRN ×2 (11:03→22:21)
[2019-06-25] MEDS: Nicotine* 4MG (FRUIT FLAVOR) GUM PO PRN (12:16)
--- NOTE | 2019-06-25 13:21 | PN ---
Subjective - Subjective Date of Service: 06/25/19 Service Type: [id number] Hosp care 25 min moderate complexity Subjective: Patient was noted to be agitated and verbally aggressive to select staff and peers this past weekend. He continues to endorse thought insertion and paranoid ideation, along as auditory hallucinations. He has been reporting AH to staff. He is notified of plan to include referral to [facility], along with continuing to explore [place] options in [facility]. Atmospheric Physicist spoke with patient's mother, Linda and was given update of patient's continued agitation and psychosis. She expressed her concern regarding Kamala being transferred to a community health hospital. She states that he has been there in the past, it made him worse and he was overmedicated. Atmospheric Physicist reiterated that state referral was only one of many options to explore and that it is our obligation to notify Kamala of this. Objective - General Observations Appearance: Disheveled Appears Stated Age: Yes Stature: Overweight Posture: WNL Eye Contact: Intense Behavior/Activity: Agitated - Interaction Observations Attitude Towards Examiner: Cooperative, Defensive, Mistrustful Stated Mood: Anxious Affect: Full Speech Pattern/Tone: Clear, Appropriate, Normal Volume Thought Process: Disorganized, Circumstantial, Racing Perception: WNL Thought Content: Preoccupation/Ruminations, Paranoid Thought Process: Lethality: Paranoid Ideation Hallucination Type: Auditory Delusion Type: Thought Broadcasting, Persecution, Grandeur - Cognitive Function Orientation: A&O x 4 Level of Consciousness: Alert Cognition: Impaired Attention/Concentration Estimated Intelligence: Normal Insight: Difficulty Acknowledging Presence of Psyciatric Problems Judgment Within Normal Limits: No Ability to Make Reasonable Decisions: Serverely Impaired - Medication Compliance Cooperative with Inpatient Medication Regimen: Yes - Group Participation Participates in Group Activities: Partial Assessment - Assessment Merits Inpatient Hospitalization: For Immediate Safety, For Stabilization Inpatient DSM-V Dx: F25.0 Clinical Impression: 28yo wm with known history of schizoaffective d/o and poor compliance to outpatient treatment who was brought to the ED by parents due to disorganized and aggressive behavior at home. He is acutely psychotic without insight. He merits hospitalization for immediate safety and stabilization. Plan - Plan Treatment Plan: Name: KAMALA MCKEON Birthdate: 1990 [id number] continue acute intensive psychiatric treatment. convert to C legal status. may decrease to q30min and allow staff pass per RN discretion. may have additional off unit pass per staffing. Valproic acid trough level of 50.0 on 06/13/19; continue depakote 1000mg in am and 1500mg qhs. given invega sustenna 156mg IM in R deltoid on 06/08/19; continue oral coverage. continue clonazepam 1mg BID and haloperidol prn agitation. add lorazepam prn for anxiety restart Artane at 2mg BID. refer to [facility] and continue to explore local outpatient resources. Continued Medication Management: Start Medication Medications: Current Medications Acetaminophen (Tylenol Tab*) 650 mg PO Q4H PRN PRN Reason: for pain; or Temp >101 F Last Admin: 06/21/19 18:03 Dose: 650 mg Al Hydrox/Mg Hydrox/Simethicone (Maalox Plus*) 30 ml PO Q4H PRN PRN Reason: INDIGESTION Last Admin: 06/23/19 16:59 Dose: 30 ml Clonazepam (Klonopin Tab(*)) 1 mg PO BID [facility] Last Admin: 06/25/19 08:21 Dose: 1 mg Divalproex Sodium (Depakote Er Tab(*)) 1,500 mg PO BEDTIME [facility] Last Admin: 06/24/19 20:42 Dose: 1,500 mg Divalproex Sodium (Depakote Er Tab(*)) 1,000 mg PO DAILY [facility] Last Admin: 06/25/19 08:21 Dose: 1,000 mg Folic Acid (Folvite Tab*) 1 mg PO DAILY [facility] Last Admin: 06/25/19 08:21 Dose: 1 mg Haloperidol (Haldol Tab*) 5 mg PO Q6H PRN PRN Reason: AGITATION Last Admin: 06/25/19 11:03 Dose: 5 mg Lorazepam (Ativan Tab(*)) 2 mg PO Q6H PRN PRN Reason: Anxiety/agitation Last Admin: 06/25/19 11:03 Dose: 2 mg Multivitamins (Theragran Tab*) 1 tab PO DAILY [facility] Last Admin: 06/25/19 08:21 Dose: 1 tab Nicotine (Nicotine Patch 21 Mg/24 Hr*) 1 patch TRANSDERM DAILY [facility] Last Admin: 06/25/19 08:23 Dose: Not Given Nicotine Polacrilex (Nicotine Gum*) 4 mg PO Q2H PRN PRN Reason: CRAVING Last Admin: 06/25/19 12:16 Dose: 4 mg Paliperidone (Invega Er Tab*) 9 mg PO BEDTIME [facility] Last Admin: 06/24/19 20:44 Dose: 9 mg Pharmacy Profile Note (Nicotine Patch Removal Note*) 1 note PATCH OFF 2100 [facility] Last Admin: 06/24/19 20:43 Dose: Not Given Thiamine HCl (Vitamin B-1 Tab*) 100 mg PO DAILY [facility] Last Admin: 06/25/19 08:21 Dose: 100 mg Trihexyphenidyl HCl (Artane*) 2 mg PO BID [facility] - Discharge Plan Discharge Plan: Consider Longer Term Tx
[2019-06-25] MEDS: Trihexyphenidyl TAB* 2 MG PO SCH ×2 (14:33→20:01)
[2019-06-25] MEDS: Paliperidone ER TAB* 9 MG TAB.ER PO SCH (20:01)
[2019-06-25] MEDS: Nicotine Patch Removal NOTE PATCH OFF SCH (20:02)
[2019-06-26] MEDS: Vitamin THERAPEUTIC TAB PO SCH (09:44)
[2019-06-26] MEDS: Thiamine TAB* 100 MG TAB PO SCH (09:44)
[2019-06-26] MEDS: Folic Acid TAB* 1 MG PO SCH (09:44)
[2019-06-26] MEDS: clonazePAM TAB(*) 1 MG PO SCH ×2 (09:45→20:03)
[2019-06-26] MEDS: Nicotine* 4MG (FRUIT FLAVOR) GUM PO PRN ×3 (09:45→17:49)
[2019-06-26] MEDS: Divalproex ER TAB(*) 500 MG PO SCH ×2 (09:45→20:04)
[2019-06-26] MEDS: Trihexyphenidyl TAB* 2 MG PO SCH ×2 (09:46→20:05)
[2019-06-26] MEDS: Nicotine PATCH 21 MG/24 HR* PATCH TRANSDERM SCH (09:50)
--- NOTE | 2019-06-26 11:48 | PN ---
BSU: Group Therapy Note - Service Type Service Type: [id number] Group Psychotherapy - Cognitive Behavioral Group Therapy ( CBT):Patient was attentive and participatory in CBT programming this morning, and remained in good behavioral control. Patient expressed positive insights regarding relevant treatment interventions and goals.
[2019-06-26] MEDS: Paliperidone ER TAB* 9 MG TAB.ER PO SCH (20:03)
[2019-06-26] MEDS: Nicotine Patch Removal NOTE PATCH OFF SCH (23:00)
[2019-06-27] MEDS: Vitamin THERAPEUTIC TAB PO SCH (09:37)
[2019-06-27] MEDS: Thiamine TAB* 100 MG TAB PO SCH (09:37)
[2019-06-27] MEDS: clonazePAM TAB(*) 1 MG PO SCH ×2 (09:37→20:18)
[2019-06-27] MEDS: Divalproex ER TAB(*) 500 MG PO SCH ×2 (09:37→20:18)
[2019-06-27] MEDS: Folic Acid TAB* 1 MG PO SCH (09:37)
[2019-06-27] MEDS: Trihexyphenidyl TAB* 2 MG PO SCH ×2 (09:38→20:18)
[2019-06-27] MEDS: Nicotine PATCH 21 MG/24 HR* PATCH TRANSDERM SCH (09:39)
[2019-06-27] MEDS: Nicotine* 4MG (FRUIT FLAVOR) GUM PO PRN ×2 (11:16→17:37)
[2019-06-27] MEDS: Paliperidone ER TAB* 9 MG TAB.ER PO SCH (20:18)
[2019-06-27] MEDS: Nicotine Patch Removal NOTE PATCH OFF SCH (21:19)
[2019-06-27] MEDS: LORazepam TAB(*) 1 MG PO PRN (23:20)
[2019-06-27] MEDS: Haloperidol TAB* 5 MG PO PRN (23:20)
[2019-06-28] MEDS: clonazePAM TAB(*) 1 MG PO SCH ×2 (10:46→20:26)
[2019-06-28] MEDS: Trihexyphenidyl TAB* 2 MG PO SCH ×2 (10:46→20:27)
[2019-06-28] MEDS: Vitamin THERAPEUTIC TAB PO SCH (10:47)
[2019-06-28] MEDS: Folic Acid TAB* 1 MG PO SCH (10:47)
[2019-06-28] MEDS: Divalproex ER TAB(*) 500 MG PO SCH ×2 (10:47→20:26)
[2019-06-28] MEDS: Thiamine TAB* 100 MG TAB PO SCH (10:47)
[2019-06-28] MEDS: Nicotine PATCH 21 MG/24 HR* PATCH TRANSDERM SCH (10:49)
--- NOTE | 2019-06-28 13:50 | PN ---
Subjective - Subjective Date of Service: 06/28/19 Service Type: [id number] Hosp care 15 min low complexity Subjective: patient status unchanged. he remains psychotic with paranoid delusions and auditory hallucinations. Assessment - Assessment Merits Inpatient Hospitalization: For Immediate Safety, For Stabilization Inpatient DSM-V Dx: F25.0 Clinical Impression: 28yo wm with known history of schizoaffective d/o and poor compliance to outpatient treatment who was brought to the ED by parents due to disorganized and aggressive behavior at home. He is acutely psychotic without insight. He merits hospitalization for immediate safety and stabilization. Plan - Plan Treatment Plan: Name: KAMALA MCKEON Birthdate: 1990 [id number] continue acute intensive psychiatric treatment. convert to 2PC legal status. may decrease to q30min and allow staff pass per RN discretion. may have additional off unit pass per staffing. Valproic acid trough level of 94.0 on 06/28/19; continue depakote 1000mg in am and 1500mg qhs. given invega sustenna 156mg IM in R deltoid on 06/08/19; continue oral coverage. continue clonazepam 1mg BID and haloperidol prn agitation. add lorazepam prn for anxiety restart Artane at 2mg BID. [facility] and continue to explore local outpatient resources. Continued Medication Management: Consider Medication Medications: Current Medications Acetaminophen (Tylenol Tab*) 650 mg PO Q4H PRN PRN Reason: for pain; or Temp >101 F Last Admin: 06/21/19 18:03 Dose: 650 mg Al Hydrox/Mg Hydrox/Simethicone (Maalox Plus*) 30 ml PO Q4H PRN PRN Reason: INDIGESTION Last Admin: 06/23/19 16:59 Dose: 30 ml Clonazepam (Klonopin Tab(*)) 1 mg PO BID [facility] Last Admin: 06/28/19 10:46 Dose: 1 mg Divalproex Sodium (Depakote Er Tab(*)) 1,500 mg PO BEDTIME [facility] Last Admin: 06/27/19 20:18 Dose: 1,500 mg Divalproex Sodium (Depakote Er Tab(*)) 1,000 mg PO DAILY [facility] Last Admin: 06/28/19 10:47 Dose: 1,000 mg Folic Acid (Folvite Tab*) 1 mg PO DAILY [facility] Last Admin: 06/28/19 10:47 Dose: 1 mg Haloperidol (Haldol Tab*) 5 mg PO Q6H PRN PRN Reason: AGITATION Last Admin: 06/27/19 23:20 Dose: 5 mg Lorazepam (Ativan Tab(*)) 2 mg PO Q6H PRN PRN Reason: Anxiety/agitation Last Admin: 06/27/19 23:20 Dose: 2 mg Multivitamins (Theragran Tab*) 1 tab PO DAILY [facility] Last Admin: 06/28/19 10:47 Dose: 1 tab Nicotine (Nicotine Patch 21 Mg/24 Hr*) 1 patch TRANSDERM DAILY [facility] Last Admin: 06/28/19 10:49 Dose: Not Given Nicotine Polacrilex (Nicotine Gum*) 4 mg PO Q2H PRN PRN Reason: CRAVING Last Admin: 06/27/19 17:37 Dose: 4 mg Paliperidone (Invega Er Tab*) 9 mg PO BEDTIME [facility] Last Admin: 06/27/19 20:18 Dose: 9 mg Pharmacy Profile Note (Nicotine Patch Removal Note*) 1 note PATCH OFF 2100 [facility] Last Admin: 06/27/19 21:19 Dose: Not Given Thiamine HCl (Vitamin B-1 Tab*) 100 mg PO DAILY [facility] Last Admin: 06/28/19 10:47 Dose: 100 mg Trihexyphenidyl HCl (Artane*) 2 mg PO BID [facility] Last Admin: 06/28/19 10:46 Dose: 2 mg - Discharge Plan Discharge Plan: Inpatient Hospitalization Outpatient Program: [facility]
[2019-06-28] MEDS: Nicotine* 4MG (FRUIT FLAVOR) GUM PO PRN (15:45)
[2019-06-28] MEDS: Nicotine Patch Removal NOTE PATCH OFF SCH (19:28)
[2019-06-28] MEDS: Paliperidone ER TAB* 9 MG TAB.ER PO SCH (20:27)
[2019-06-29] MEDS: Thiamine TAB* 100 MG TAB PO SCH (08:57)
[2019-06-29] MEDS: Divalproex ER TAB(*) 500 MG PO SCH ×2 (08:57→20:00)
[2019-06-29] MEDS: Trihexyphenidyl TAB* 2 MG PO SCH ×2 (08:58→20:02)
[2019-06-29] MEDS: Vitamin THERAPEUTIC TAB PO SCH (08:58)
[2019-06-29] MEDS: Folic Acid TAB* 1 MG PO SCH (08:59)
[2019-06-29] MEDS: clonazePAM TAB(*) 1 MG PO SCH ×2 (08:59→20:02)
[2019-06-29] MEDS: Nicotine PATCH 21 MG/24 HR* PATCH TRANSDERM SCH (09:00)
[2019-06-29] MEDS: Nicotine* 4MG (FRUIT FLAVOR) GUM PO PRN ×3 (09:02→17:26)
--- NOTE | 2019-06-29 11:51 | PN ---
BSU: Group Therapy Note - Service Type Service Type: [id number] Group Psychotherapy - Cognitive Behavioral Group Therapy ( CBT):Patient was attentive and participatory in CBT programming this morning, and remained in good behavioral control. Patient expressed positive insights regarding relevant treatment interventions and goals.
[2019-06-29] MEDS ORDERED: Ondansetron TAB* 4 MG PO PRN (12:53)
[2019-06-29] MEDS: Acetaminophen TAB* 325 MG PO PRN (14:56)
[2019-06-29] MEDS ORDERED: Docusate CAP* 100 MG PO PRN (16:17)
--- NOTE | 2019-06-29 17:11 | PN ---
Subjective - Subjective Date of Service: 06/29/19 Service Type: 31475 Hosp care 25 min moderate complexity Subjective: Patient continues to have difficulty with AH and delusional thoughts. He consents to clozapine trial. Informed of need for blood draw and constipation prophylaxis. Objective - General Observations Appearance: Disheveled Stature: Overweight Posture: WNL Eye Contact: Intense Behavior/Activity: Agitated - Interaction Observations Attitude Towards Examiner: Cooperative, Demanding, Mistrustful Stated Mood: Dysphoric, Irritable Affect: Restricted Speech Pattern/Tone: Clear, Appropriate, Normal Volume Thought Process: Disorganized Perception: WNL Thought Content: Paranoid, Grandiose Thought Process: Lethality: Paranoid Ideation Hallucination Type: Auditory Delusion Type: Persecution, Grandeur - Cognitive Function Orientation: A&O x 4 Level of Consciousness: Alert Cognition: Impaired Attention/Concentration Estimated Intelligence: Normal Insight: Difficulty Acknowledging Presence of Psyciatric Problems Judgment Within Normal Limits: No Ability to Make Reasonable Decisions: Serverely Impaired - Medication Compliance Cooperative with Inpatient Medication Regimen: Yes - Group Participation Participates in Group Activities: Partial Assessment - Assessment Merits Inpatient Hospitalization: For Immediate Safety, For Stabilization Inpatient DSM-V Dx: F25.0 Clinical Impression: 28yo wm with known history of schizoaffective d/o and poor compliance to outpatient treatment who was brought to the ED by parents due to disorganized and aggressive behavior at home. He is acutely psychotic without insight. He merits hospitalization for immediate safety and stabilization. Plan - Plan Treatment Plan: Name: KAMALA MCKEON Birthdate: 1990 [id number] continue acute intensive psychiatric treatment. convert to [facility] legal status. may decrease to q30min and allow staff pass per RN discretion. may have additional off unit pass per staffing. Valproic acid trough level of 94.0 on 06/28/19; continue depakote 1000mg in am and 1500mg qhs. given invega sustenna 156mg IM in R deltoid on 06/08/19. obtain CBC and initiate clozapine titration, include constipation prophylaxis. [facility] and continue to explore local outpatient resources. Continued Medication Management: Start Medication Medications: Current Medications Acetaminophen (Tylenol Tab*) 650 mg PO Q4H PRN PRN Reason: for pain; or Temp >101 F Last Admin: 06/29/19 14:56 Dose: 650 mg Al Hydrox/Mg Hydrox/Simethicone (Maalox Plus*) 30 ml PO Q4H PRN PRN Reason: INDIGESTION Last Admin: 06/23/19 16:59 Dose: 30 ml Clonazepam (Klonopin Tab(*)) 1 mg PO BID [facility] Last Admin: 06/29/19 08:59 Dose: 1 mg Clozapine (Clozapine Tab*) 0 mg PO DAILY [facility]; Taper Stop: 07/03/19 08:59 Divalproex Sodium (Depakote Er Tab(*)) 1,500 mg PO BEDTIME [facility] Last Admin: 06/28/19 20:26 Dose: 1,500 mg Divalproex Sodium (Depakote Er Tab(*)) 1,000 mg PO DAILY [facility] Last Admin: 06/29/19 08:57 Dose: 1,000 mg Docusate Sodium (Colace Cap*) 100 mg PO BID PRN PRN Reason: CONSTIPATION Folic Acid (Folvite Tab*) 1 mg PO DAILY [facility] Last Admin: 06/29/19 08:59 Dose: 1 mg Haloperidol (Haldol Tab*) 5 mg PO Q6H PRN PRN Reason: AGITATION Last Admin: 06/27/19 23:20 Dose: 5 mg Lorazepam (Ativan Tab(*)) 2 mg PO Q6H PRN PRN Reason: Anxiety/agitation Last Admin: 06/27/19 23:20 Dose: 2 mg Multivitamins (Theragran Tab*) 1 tab PO DAILY [facility] Last Admin: 06/29/19 08:58 Dose: 1 tab Nicotine (Nicotine Patch 21 Mg/24 Hr*) 1 patch TRANSDERM DAILY [facility] Last Admin: 06/29/19 09:00 Dose: 1 patch Nicotine Polacrilex (Nicotine Gum*) 4 mg PO Q2H PRN PRN Reason: CRAVING Last Admin: 06/29/19 14:26 Dose: 4 mg Ondansetron HCl (Zofran Tab*) 4 mg PO Q6H PRN PRN Reason: NAUSEA/VOMITING Pharmacy Profile Note (Nicotine Patch Removal Note*) 1 note PATCH OFF 2100 [facility] Last Admin: 06/28/19 19:28 Dose: Not Given Polyethylene Glycol/Electrolytes (Miralax*) 17 gm PO DAILY [facility] Thiamine HCl (Vitamin B-1 Tab*) 100 mg PO DAILY [facility] Last Admin: 06/29/19 08:57 Dose: 100 mg Trihexyphenidyl HCl (Artane*) 2 mg PO BID [facility] Last Admin: 06/29/19 08:58 Dose: 2 mg - Discharge Plan Discharge Plan: Consider Longer Term Tx
[2019-06-29] MEDS: Polyethylene Glycol 3350* 17 GM PACKET PO SCH (17:25)
[2019-06-29 18:41] LABS: ABS Basophils 0.1 10^3/ul (0-0.2); ABS Eosinophils 0.2 10^3/ul (0-0.6); ABS Lymphocytes 2.5 10^3/ul (1.0-4.8); ABS Monocytes 0.6 10^3/ul (0-0.8); Eosinophil % 2.2 %; Hematocrit 42 % (42-52); Hemoglobin 14.8 g/dL (14.0-18.0); Mean Corpuscular HGB Conc 35 g/dL (31-36); Mean Corpuscular Hemoglobin 33 pg (27-31); Mean Corpuscular Volume 93 fL (80-94); Mean Platelet Volume 8.8 fL (7.4-10.4); Nucleated Red Blood Cells % 0.1; Platelet Count 210 10^3/uL (150-450); Red Blood Count 4.54 10^6 /uL (4.18-5.48); Red Cell Distribution Width 14 % (10-15); White Blood Count 7.3 10^3/uL (3.5-10.8)
[2019-06-29] MEDS: Nicotine Patch Removal NOTE PATCH OFF SCH (20:42)
[2019-06-30] MEDS ORDERED: CloZAPine TAB* 25 MG TAB PO SCH (09:00)
[2019-06-30] MEDS: Polyethylene Glycol 3350* 17 GM PACKET PO SCH (09:22)
[2019-06-30] MEDS: Divalproex ER TAB(*) 500 MG PO SCH ×2 (09:23→20:33)
[2019-06-30] MEDS: Folic Acid TAB* 1 MG PO SCH (09:23)
[2019-06-30] MEDS: clonazePAM TAB(*) 1 MG PO SCH ×2 (09:24→20:33)
[2019-06-30] MEDS: Trihexyphenidyl TAB* 2 MG PO SCH ×2 (09:24→20:34)
[2019-06-30] MEDS: Vitamin THERAPEUTIC TAB PO SCH (09:25)
[2019-06-30] MEDS: Thiamine TAB* 100 MG TAB PO SCH (09:25)
[2019-06-30] MEDS: CloZAPine TAB* 25 MG TAB PO SCH ×2 (09:40→20:33)
[2019-06-30] MEDS: Nicotine PATCH 21 MG/24 HR* PATCH TRANSDERM SCH (09:42)
[2019-06-30] MEDS: Nicotine* 4MG (FRUIT FLAVOR) GUM PO PRN (19:42)
[2019-06-30] MEDS: Nicotine Patch Removal NOTE PATCH OFF SCH (21:23)
[2019-07-01] MEDS: Folic Acid TAB* 1 MG PO SCH (09:14)
[2019-07-01] MEDS: Vitamin THERAPEUTIC TAB PO SCH (09:14)
[2019-07-01] MEDS: Trihexyphenidyl TAB* 2 MG PO SCH ×2 (09:15→20:09)
[2019-07-01] MEDS: clonazePAM TAB(*) 1 MG PO SCH ×2 (09:15→20:09)
[2019-07-01] MEDS: Thiamine TAB* 100 MG TAB PO SCH (09:15)
[2019-07-01] MEDS: Divalproex ER TAB(*) 500 MG PO SCH ×2 (09:15→20:08)
[2019-07-01] MEDS: Polyethylene Glycol 3350* 17 GM PACKET PO SCH (09:17)
[2019-07-01] MEDS: CloZAPine TAB* 25 MG TAB PO SCH ×2 (09:17→20:11)
[2019-07-01] MEDS: Nicotine PATCH 21 MG/24 HR* PATCH TRANSDERM SCH (09:17)
[2019-07-01] MEDS: Nicotine* 4MG (FRUIT FLAVOR) GUM PO PRN ×2 (15:01→17:53)
[2019-07-01] MEDS: Nicotine Patch Removal NOTE PATCH OFF SCH (20:09)
[2019-07-02] MEDS: Polyethylene Glycol 3350* 17 GM PACKET PO SCH (09:59)
[2019-07-02] MEDS: Nicotine PATCH 21 MG/24 HR* PATCH TRANSDERM SCH (09:59)
[2019-07-02] MEDS: CloZAPine TAB* 25 MG TAB PO SCH ×2 (10:00→19:45)
[2019-07-02] MEDS: Vitamin THERAPEUTIC TAB PO SCH (10:00)
[2019-07-02] MEDS: Trihexyphenidyl TAB* 2 MG PO SCH ×2 (10:00→19:46)
[2019-07-02] MEDS: Folic Acid TAB* 1 MG PO SCH (10:00)
[2019-07-02] MEDS: Thiamine TAB* 100 MG TAB PO SCH (10:00)
[2019-07-02] MEDS: Divalproex ER TAB(*) 500 MG PO SCH ×2 (10:00→19:47)
[2019-07-02] MEDS: clonazePAM TAB(*) 1 MG PO SCH ×2 (10:01→19:47)
--- NOTE | 2019-07-02 14:14 | PN ---
Subjective - Subjective Date of Service: 07/02/19 Service Type: 50967 Hosp care 25 min moderate complexity Subjective: Patient reports he does not like clozapine due to "protein synthesis" and the way it affects him in that he needs to "make more brains." His mother, Linda, is present during visiting hours and expresses concern about past trial of clozapine causing excessive sedation and weight gain. She states she has read about harmful effects to kidneys and liver. She inquires about other medications. In Class Special Education Teacher discusses risks/benefits and patient's history of being more stable while on clozapine and that he has had a myriad of medication trials. Patient and mother were given examples of Kamala's remote and recent episodes of verbal aggression towards others who he perceives to be antagonizing him. Patient exhibited impaired insight into the above and states that current staff are targetting him. He agrees to trial clozapine dosing at bedtime. Objective - General Observations Appearance: Disheveled Appears Stated Age: Yes Stature: Overweight Posture: WNL Eye Contact: Average, Intense Behavior/Activity: Agitated - Interaction Observations Attitude Towards Examiner: Defensive, Mistrustful Stated Mood: Irritable Affect: Restricted Speech Pattern/Tone: Loud Volume Thought Process: Disorganized Perception: WNL Thought Content: Paranoid, Grandiose Thought Process: Lethality: Paranoid Ideation Hallucination Type: Denies Delusion Type: Thought Broadcasting, Persecution - Cognitive Function Orientation: A&O x 4 Level of Consciousness: Alert Cognition: Impaired Attention/Concentration Estimated Intelligence: Normal Insight: Difficulty Acknowledging Presence of Psyciatric Problems Judgment Within Normal Limits: No Ability to Make Reasonable Decisions: Serverely Impaired - Medication Compliance Cooperative with Inpatient Medication Regimen: No - Group Participation Participates in Group Activities: No Assessment - Assessment Merits Inpatient Hospitalization: For Immediate Safety, For Stabilization Inpatient DSM-V Dx: F25.0 Clinical Impression: 28yo wm with known history of schizoaffective d/o and poor compliance to outpatient treatment who was brought to the ED by parents due to disorganized and aggressive behavior at home. He is acutely psychotic without insight. He merits hospitalization for immediate safety and stabilization. Plan - Plan Treatment Plan: Name: KAMALA MCKEON Birthdate: 1990 [id number] continue acute intensive psychiatric treatment. convert to [facility] legal status. may decrease to q30min and allow staff pass per RN discretion. may have additional off unit pass per staffing. Valproic acid trough level of 94.0 on 06/28/19; continue depakote 1000mg in am and 1500mg qhs. given invega sustenna 156mg IM in R deltoid on 06/08/19. continue clozapine titration, include constipation prophylaxis. pending referral to [facility] and continue to explore local outpatient resources. Continued Medication Management: Start Medication Medications: Current Medications Acetaminophen (Tylenol Tab*) 650 mg PO Q4H PRN PRN Reason: for pain; or Temp >101 F Last Admin: 06/29/19 14:56 Dose: 650 mg Al Hydrox/Mg Hydrox/Simethicone (Maalox Plus*) 30 ml PO Q4H PRN PRN Reason: INDIGESTION Last Admin: 06/23/19 16:59 Dose: 30 ml Clonazepam (Klonopin Tab(*)) 1 mg PO BID [facility] Last Admin: 07/02/19 10:01 Dose: 1 mg Clozapine (Clozapine Tab*) 12.5 mg PO BEDTIME [facility] Divalproex Sodium (Depakote Er Tab(*)) 1,500 mg PO BEDTIME [facility] Last Admin: 07/01/19 20:08 Dose: 1,500 mg Divalproex Sodium (Depakote Er Tab(*)) 1,000 mg PO DAILY [facility] Last Admin: 07/02/19 10:00 Dose: 1,000 mg Docusate Sodium (Colace Cap*) 100 mg PO BID PRN PRN Reason: CONSTIPATION Folic Acid (Folvite Tab*) 1 mg PO DAILY [facility] Last Admin: 07/02/19 10:00 Dose: 1 mg Haloperidol (Haldol Tab*) 5 mg PO Q6H PRN PRN Reason: AGITATION Last Admin: 06/27/19 23:20 Dose: 5 mg Lorazepam (Ativan Tab(*)) 2 mg PO Q6H PRN PRN Reason: Anxiety/agitation Last Admin: 06/27/19 23:20 Dose: 2 mg Multivitamins (Theragran Tab*) 1 tab PO DAILY [facility] Last Admin: 07/02/19 10:00 Dose: 1 tab Nicotine (Nicotine Patch 21 Mg/24 Hr*) 1 patch TRANSDERM DAILY [facility] Last Admin: 07/02/19 09:59 Dose: Not Given Nicotine Polacrilex (Nicotine Gum*) 4 mg PO Q2H PRN PRN Reason: CRAVING Last Admin: 07/01/19 17:53 Dose: 4 mg Ondansetron HCl (Zofran Tab*) 4 mg PO Q6H PRN PRN Reason: NAUSEA/VOMITING Pharmacy Profile Note (Nicotine Patch Removal Note*) 1 note PATCH OFF 2100 [facility] Last Admin: 07/01/19 20:09 Dose: Not Given Polyethylene Glycol/Electrolytes (Miralax*) 17 gm PO DAILY [facility] Last Admin: 07/02/19 09:59 Dose: Not Given Thiamine HCl (Vitamin B-1 Tab*) 100 mg PO DAILY [facility] Last Admin: 07/02/19 10:00 Dose: 100 mg Trihexyphenidyl HCl (Artane*) 2 mg PO BID [facility] Last Admin: 07/02/19 10:00 Dose: 2 mg - Discharge Plan Discharge Plan: Consider Longer Term Tx
[2019-07-02] MEDS: Nicotine* 4MG (FRUIT FLAVOR) GUM PO PRN (16:30)
[2019-07-02] MEDS: Nicotine Patch Removal NOTE PATCH OFF SCH (19:57)
[2019-07-03] MEDS: Nicotine PATCH 21 MG/24 HR* PATCH TRANSDERM SCH (08:46)
[2019-07-03] MEDS: Divalproex ER TAB(*) 500 MG PO SCH ×2 (08:46→20:25)
[2019-07-03] MEDS: Thiamine TAB* 100 MG TAB PO SCH (08:47)
[2019-07-03] MEDS: Vitamin THERAPEUTIC TAB PO SCH (08:47)
[2019-07-03] MEDS: Trihexyphenidyl TAB* 2 MG PO SCH ×2 (08:47→23:21)
[2019-07-03] MEDS: clonazePAM TAB(*) 1 MG PO SCH ×2 (08:48→20:26)
[2019-07-03] MEDS: Folic Acid TAB* 1 MG PO SCH (08:48)
[2019-07-03] MEDS: Nicotine* 4MG (FRUIT FLAVOR) GUM PO PRN ×2 (08:50→14:12)
[2019-07-03] MEDS: Polyethylene Glycol 3350* 17 GM PACKET PO SCH (10:39)
[2019-07-03] MEDS: Haloperidol TAB* 5 MG PO PRN (17:30)
[2019-07-03] MEDS: CloZAPine TAB* 25 MG TAB PO SCH (20:26)
[2019-07-03] MEDS: Al Hydrox/Mg Hydrox/Simet LIQ* 30 ML UDC PO PRN (20:28)
[2019-07-03] MEDS: Nicotine Patch Removal NOTE PATCH OFF SCH (23:16)
[2019-07-04] MEDS: clonazePAM TAB(*) 1 MG PO SCH ×2 (08:53→19:43)
[2019-07-04] MEDS: Folic Acid TAB* 1 MG PO SCH (08:53)
[2019-07-04] MEDS: Vitamin THERAPEUTIC TAB PO SCH (08:54)
[2019-07-04] MEDS: Thiamine TAB* 100 MG TAB PO SCH (08:54)
[2019-07-04] MEDS: Polyethylene Glycol 3350* 17 GM PACKET PO SCH (08:55)
[2019-07-04] MEDS: Trihexyphenidyl TAB* 2 MG PO SCH ×2 (08:55→19:44)
[2019-07-04] MEDS: Nicotine PATCH 21 MG/24 HR* PATCH TRANSDERM SCH (08:55)
[2019-07-04] MEDS: Nicotine* 4MG (FRUIT FLAVOR) GUM PO PRN ×2 (08:57→13:57)
[2019-07-04] MEDS: Divalproex ER TAB(*) 500 MG PO SCH ×2 (09:32→19:42)
[2019-07-04] MEDS: Nicotine Patch Removal NOTE PATCH OFF SCH (19:25)
[2019-07-04] MEDS ORDERED: CloZAPine TAB* 25 MG TAB PO SCH (21:00)
[2019-07-05 07:49] LABS: ABS Eosinophils 0.2 10^3/ul (0-0.6); ABS Lymphocytes 2.7 10^3/ul (1.0-4.8); ABS Monocytes 0.6 10^3/ul (0-0.8); ABS Neutrophils 2.8 10^3/ul (1.5-7.7); Eosinophil % 3.2 %; Hematocrit 43 % (42-52); Hemoglobin 14.8 g/dL (14.0-18.0); Mean Corpuscular HGB Conc 35 g/dL (31-36); Mean Corpuscular Hemoglobin 32 pg (27-31); Mean Corpuscular Volume 93 fL (80-94); Mean Platelet Volume 8.2 fL (7.4-10.4); Nucleated Red Blood Cells % 0.2; Platelet Count 176 10^3/uL (150-450); Red Cell Distribution Width 14 % (10-15); White Blood Count 6.4 10^3/uL (3.5-10.8)
[2019-07-05] MEDS: Folic Acid TAB* 1 MG PO SCH (08:36)
[2019-07-05] MEDS: Vitamin THERAPEUTIC TAB PO SCH (08:36)
[2019-07-05] MEDS: clonazePAM TAB(*) 1 MG PO SCH (08:36)
[2019-07-05] MEDS: Divalproex ER TAB(*) 500 MG PO SCH (08:36)
[2019-07-05] MEDS: Thiamine TAB* 100 MG TAB PO SCH (08:36)
[2019-07-05] MEDS: Haloperidol TAB* 5 MG PO PRN (08:36)
[2019-07-05] MEDS: Trihexyphenidyl TAB* 2 MG PO SCH (08:36)
[2019-07-05] MEDS: Nicotine PATCH 21 MG/24 HR* PATCH TRANSDERM SCH (08:37)
[2019-07-05] MEDS: Polyethylene Glycol 3350* 17 GM PACKET PO SCH (08:37)
[2019-07-05 08:57] VITALS: BP 129/61
--- NOTE | 2019-07-05 10:23 | DCNOTE ---
Subjective - Subjective Service Types: 00118 Hosp DC Day Mgmt complex over 30 min Discharge Date: 07/05/19 Subjective: Patient and family notified yesterday about transfer to [facility], [facility], for today. Report given to Dr Lovett at [facility]. Objective - General Observations Appearance: Disheveled, Unkempt Stature: Overweight Posture: WNL Eye Contact: Intense Behavior/Activity: Agitated - Interaction Observations Attitude Towards Examiner: Cooperative, Defensive, Mistrustful Stated Mood: Irritable Affect: Restricted Speech Pattern/Tone: Clear, Quiet Volume Thought Process: Disorganized Perception: WNL Thought Content: Paranoid, Grandiose Thought Process: Lethality: Paranoid Ideation Hallucination Type: Auditory Delusion Type: Thought Broadcasting, Persecution, Grandeur - Cognitive Function Orientation: A&O x 4 Level of Consciousness: Alert Cognition: Impaired Attention/Concentration Estimated Intelligence: Normal Insight: Difficulty Acknowledging Presence of Psyciatric Problems Judgment Within Normal Limits: No Ability to Make Reasonable Decisions: Serverely Impaired - Medication Compliance Cooperative with Inpatient Medication Regimen: Yes - Group Participation Participates in Group Activities: No DC Assessment - Assessment Clinical Impression: 28yo wm with known history of schizoaffective d/o and poor compliance to outpatient treatment who was brought to the ED by parents due to disorganized and aggressive behavior at home. He is actively psychotic without insight. He merits hospitalization for long-term stabilization. Merits Inpatient Hospitalization: Yes Inpatient DSM-V Dx: F25.0 Discharge Planning - Discharge Planning Discharge Plan: Consider Longer Term Tx Recommendations for Continuing Care: Medication Management, Psychotherapy, Substance Abuse Counseling, Routine Metabolic Monitoring, Therapeutic Drug Levels Medications: Current Medications Acetaminophen (Tylenol Tab*) 650 mg PO Q4H PRN PRN Reason: for pain; or Temp >101 F Last Admin: 06/29/19 14:56 Dose: 650 mg Al Hydrox/Mg Hydrox/Simethicone (Maalox Plus*) 30 ml PO Q4H PRN PRN Reason: INDIGESTION Last Admin: 07/03/19 20:28 Dose: 30 ml Clonazepam (Klonopin Tab(*)) 1 mg PO BID [facility] Last Admin: 07/05/19 08:36 Dose: 1 mg Clozapine (Clozapine Tab*) 25 mg PO BEDTIME [facility] Last Admin: 07/04/19 19:43 Dose: 25 mg Divalproex Sodium (Depakote Er Tab(*)) 1,500 mg PO BEDTIME [facility] Last Admin: 07/04/19 19:42 Dose: 1,500 mg Divalproex Sodium (Depakote Er Tab(*)) 1,000 mg PO DAILY [facility] Last Admin: 07/05/19 08:36 Dose: 1,000 mg Docusate Sodium (Colace Cap*) 100 mg PO BID PRN PRN Reason: CONSTIPATION Folic Acid (Folvite Tab*) 1 mg PO DAILY [facility] Last Admin: 07/05/19 08:36 Dose: 1 mg Haloperidol (Haldol Tab*) 5 mg PO Q6H PRN PRN Reason: AGITATION Last Admin: 07/05/19 08:36 Dose: 5 mg Lorazepam (Ativan Tab(*)) 2 mg PO Q6H PRN PRN Reason: Anxiety/agitation Last Admin: 06/27/19 23:20 Dose: 2 mg Multivitamins (Theragran Tab*) 1 tab PO DAILY [facility] Last Admin: 07/05/19 08:36 Dose: 1 tab Nicotine (Nicotine Patch 21 Mg/24 Hr*) 1 patch TRANSDERM DAILY [facility] Last Admin: 07/05/19 08:37 Dose: Not Given Nicotine Polacrilex (Nicotine Gum*) 4 mg PO Q2H PRN PRN Reason: CRAVING Last Admin: 07/04/19 13:57 Dose: 4 mg Ondansetron HCl (Zofran Tab*) 4 mg PO Q6H PRN PRN Reason: NAUSEA/VOMITING Pharmacy Profile Note (Nicotine Patch Removal Note*) 1 note PATCH OFF 2100 [facility] Last Admin: 07/04/19 19:25 Dose: Not Given Polyethylene Glycol/Electrolytes (Miralax*) 17 gm PO DAILY [facility] Last Admin: 07/05/19 08:37 Dose: Not Given Thiamine HCl (Vitamin B-1 Tab*) 100 mg PO DAILY [facility] Last Admin: 07/05/19 08:36 Dose: 100 mg Trihexyphenidyl HCl (Artane*) 2 mg PO BID [facility] Last Admin: 07/05/19 08:36 Dose: 2 mg Discharge Planning: Prescriptions provided for discharge [] Yes [x] No Follow up care details as per social work arrangements: patient to be transferred to [facility] Patient response to discharge plan: [] eager for discharge [] agreeable with discharge plan [x] ambivalent about discharge [] disagrees with discharge today
== END 2019-07-05 10:30 | disposition short-term general hospital (02) | DRG 885 ==
LOC: ED 12:32 → BSU 16:36
PROVIDERS: ADMIT Psychiatry & Neurology Psychiatry; ATTEND Psychiatry & Neurology Psychiatry
PROC: GZHZZZZ Group Psychotherapy (ICD-10-PCS; principal; 2019-06-20)
DX: F25.0 Schizoaffective disorder, bipolar type (principal); F41.9 Anxiety disorder, unspecified; F17.210 Nicotine dependence, cigarettes, uncomplicated; E66.9 Obesity, unspecified; E78.00 Pure hypercholesterolemia, unspecified; Z91.14 Patient's other noncompliance with medication regimen; Z68.34 Body mass index [BMI] 34.0-34.9, adult; Z72.89 Other problems related to lifestyle
CPT/HCPCS: 36415; 80053; 80061; 80164; 80307; 80320; 80329; 81003; 81015; 83036; 84443; 85025; 87389; 90686; 90853; 99222; 99231; 99232; 99233; 99238; 99284; A9270-GY; G0480